=== PATIENT | female | born 1955 | race Caucasian/White ===

== ENCOUNTER 2016-10-21 11:32 | Emergency (ER) | payer OTHER ==
[~2016-10-21] VITALS: Wt 70.0 kg
[2016-10-21] MEDS ORDERED: SOD CHLORIDE 0.9% 1,000 ML IV STA (12:10)
[2016-10-21] MEDS ORDERED: KETOROLAC 15 MG INJ IV STA (12:10)
[2016-10-21] MEDS ORDERED: ONDANSETRON 4 MG INJ IV STA (12:10)
[2016-10-21] MEDS ORDERED: MECL-77 PO (12:18)
[2016-10-21] MEDS ORDERED: ATOR10TA65 PO (12:18)
[2016-10-21] MEDS ORDERED: LOSA50TA6 PO (12:19)
[2016-10-21] MEDS ORDERED: LEVO100T87 PO (12:19)
[2016-10-21] MEDS ORDERED: LORAZEPAM 0.5 MG TAB PO ONE (12:30)
[2016-10-21 13:12] VITALS: TEMP 98
[2016-10-21 13:34] LABS: ADD UMIC YES; URINE BILIRUBIN (Dip) NEGATIVE (NEGATIVE); URINE BLOOD (Dip) 2+ (NEGATIVE); URINE COLOR LT. YELLOW (YELLOW); URINE GLUCOSE (Dip) NEGATIVE (NEGATIVE); URINE KETONES (Dip) NEGATIVE (NEGATIVE); URINE LEUKOCYTE ESTERASE (Dip) NEGATIVE (NEGATIVE); URINE NITRITE (Dip) NEGATIVE (NEGATIVE); URINE TOTAL PROTEIN (Dip) NEGATIVE (NEGATIVE); URINE UROBILINOGEN (Dip) 0.2 E.U./dL (0.1-1.0)
[2016-10-21] MEDS ORDERED: SCOP1PAT TOP (13:58)
[2016-10-21 14:15] VITALS: BP 153/72; PULSE 55; RESP 18
--- NOTE | 2016-10-21 20:04 | ERD ---
ER Documentation Chief Complaint Date/Time DATE: 10/21/16 TIME: 19:58 Chief Complaint dizziness x 2 weeks, seen at [facility] c/o same HPI 61-year-old woman presents with continued dizziness 2 weeks despite using meclizine for a few days without relief. She was seen and evaluated at [facility] recently for similar symptoms and a full workup there including an MRI of the brain was unremarkable. Patient was discharged with prescriptions and told to follow-up with her PMD although her symptoms continue and she has not yet followed up with her PMD. Her son was at the bedside states she has been very anxious regarding family issues recently. Her dizziness is daily with some nausea and a headache, no vomiting or diarrhea, no chest pain or shortness of breath, no suicidal homicidal ideation. Patient denies weakness in her arms or legs and no difficulty ambulating. ROS All systems reviewed and are negative except as per history of present illness. Medications Home Meds Active Scripts Scopolamine (Transderm-Scop) 1 Each Patch.td.3, 1 EACH TOP DAILY, #4 Prov:FAISAL ETIENNE MD 10/21/16 Reported Medications Losartan Potassium* (Losartan Potassium*) 50 Mg Tablet, 50 MG PO DAILY, TAB 10/21/16 Levothyroxine Sodium* (Levothyroxine Sodium*) 100 Mcg Tablet, 100 MCG PO BEFORE BREAKFAST, #30 TAB 10/21/16 Meclizine Hcl* (Meclizine Hcl*) 25 Mg Tablet, 25 MG PO Q8H Y for DIZZINESS, TAB 10/21/16 Atorvastatin Calcium (Atorvastatin Calcium) 10 Mg Tablet, 10 MG PO QHS, #30 TAB 10/21/16 Allergies Allergies: Coded Allergies: No Known Allergy (Unverified , 10/21/16) PMhx/Soc Hypothyroidism, hypertension, obesity, hypercholesterolemia History of Surgery: Yes (THYROID) Hx Cardiac Disorders: Yes (HTN, HYPERLIPIDEMIA) Hx Alcohol Use: No Hx Substance Use: No Hx Tobacco Use: No Smoking Status: Never smoker FmHx Family History: No diabetes Physical Exam Vitals Vital Signs Date Time Temp Pulse Resp B/P Pulse Ox O2 Delivery O2 Flow Rate FiO2 10/21/16 14:15 55 18 153/72 95 Room Air 10/21/16 13:12 98.0 52 18 158/78 95 Room Air 10/21/16 11:37 99.8 79 18 158/72 99 Physical Exam GENERAL: Well-developed, well-nourished, anxious HEENT: Moist mucous membranes, pink conjunctiva, no cervical spine tenderness or step-off deformities, no goiter, no jaundice or icterus, extraocular movements intact without pain. No submandibular induration, and no pharyngeal erythema NEURO: Alert and oriented 3, cranial nerves II through XII intact bilaterally, pupils equal round reactive to light, no focal deficits or facial asymmetry, sensation intact distally Strength 5/5 in upper and lower extremities bilaterally, no nystagmus, no cerebellar signs, gait normal CARDIAC: Regular rate and rhythm, no murmurs rubs or gallops LUNGS: Clear bilaterally no wheezing crackles or stridor ABDOMEN: Soft nontender, no guarding, no rigidity, no rebound, no psoas sign no obturator sign. Normoactive bowel sounds SKIN: Warm and dry to touch, no abrasions, contusions, or hematomas, no lacerations, no ecchymosis, no target lesions, and without ulcers EXTREMITIES: No clubbing cyanosis or edema, calves are bilaterally symmetrical, no Homans sign, no popliteal cord sign. Distal pulses equal and bilateral PSYCH: Anxious Results 24 hrs Laboratory Tests Test 10/21/16 12:53 Urine Color LT. YELLOW Urine Clarity CLEAR Urine pH 6.5 Urine Specific [place] 1.010 Urine Ketones NEGATIVE Urine Nitrite NEGATIVE Urine Bilirubin NEGATIVE Urine Urobilinogen 0.2 E.U./dL Urine Leukocyte Esterase NEGATIVE Urine Microscopic RBC 2-5/HPF Urine Microscopic WBC NONE SEEN/HPF Urine Hemoglobin 2+ Urine Glucose NEGATIVE% Urine Total Protein NEGATIVE Current Medications Medications (Trade) Dose Ordered Sig/Dinorah Route PRN Reason Start Time Stop Time Status Last Admin Dose Admin Sodium Chloride (NS) 1,000 ml @ 1,000 mls/hr Q1H STAT IV 10/21/16 12:10 10/21/16 13:09 DC 10/21/16 13:11 Ketorolac Tromethamine (Toradol) 15 mg ONCE STAT IV 10/21/16 12:10 10/21/16 12:11 DC 10/21/16 13:10 Ondansetron HCl (Zofran Inj) 4 mg ONCE STAT IV 10/21/16 12:10 10/21/16 12:11 DC 10/21/16 13:11 Lorazepam (Ativan) 0.5 mg ONCE ONCE PO 10/21/16 12:30 10/21/16 12:31 DC 10/21/16 13:11 Procedures/MDM IV line was established patient was placed on storage specialist rhythm strip revealed a sinus rhythm at about 80 bpm with upright P and T waves. Patient was afebrile. I administered 1 L normal saline intravenously, lorazepam 0.5 mg p.o., Toradol 50 mg IV and Zofran 4 mg IV with good effect. Urine analysis was negative for infection. I reviewed recent complete workup which was performed at [facility], all labs were normal, EKG was normal , and imaging studies were unremarkable including an MRI of the brain. There are multiple causes of vertigo and generalized dizziness, anxiety being 1 of them, I find no acute or serious underlying pathology today and suspect the patient can be managed safely as an outpatient. Both verbal and written recommendations were provided to the patient and her son who was at the bedside. Differential diagnoses considered, included but not limited to acute coronary syndrome, pulmonary embolism, aortic dissection, abdominal aortic aneurysm, sepsis, stroke, meningitis, encephalitis, pneumonia, appendicitis, cholecystitis , bowel obstruction, pyelonephritis, nephrolithiasis, cystitis, as well as metabolic, hematologic, and electrolyte abnormalities. As well as abscess, cellulitis, fractures, and dislocations. Patient feels much better at this time, and vital signs are normal, symptoms have improved. I did give strict instructions to return to the ED if symptoms continue or worsen, patient will otherwise follow-up with primary care physician. Patient understood instructions and agreed to plan. Departure Diagnosis: Primary Impression: Dizziness Additional Impressions: Dehydration Headache Headache type: unspecified Headache chronicity pattern: acute headache Intractability: not intractable Qualified Code: R51 - Acute nonintractable headache, unspecified headache type Condition: Good Patient Instructions: Inner Ear Problems: Causes of Dizziness (Vertigo), Dizziness (Vertigo) and Balance Problems: Ensuring Your Safety, Dizziness, Unk Cause, Headache, Tension Referrals: MARYCHUY RATLIFF (PCP) FAISAL ETIENNE MD October 21, 2016 20:04
== END 2016-10-21 14:27 | disposition home or self-care (01) ==
LOC: E/R 11:32
DX: R42 Dizziness and giddiness (principal); R51 Headache; E86.0 Dehydration; I10 Essential (primary) hypertension; E03.9 Hypothyroidism, unspecified
CPT/HCPCS: 81001; J1885; J2405; J7030; Z7610; 81003; 96374; 96375

== ENCOUNTER 2016-10-23 19:45 | Emergency (ER) | payer OTHER ==
[~2016-10-23] VITALS: Ht 162.6 cm; Wt 67.0 kg
[~2016-10-23 19:45] MED LIST: ATOR10TA65 PO; LEVO100T87 PO; LOSA50TA6 PO; MECL-77 PO; SCOP1PAT TOP
[2016-10-23 20:04] VITALS: Ht 162.6 cm; Wt 67.0 kg
--- NOTE | 2016-10-23 21:13 | ERA ---
ER Documentation Chief Complaint Date/Time DATE: 10/23/16 TIME: 21:13 Chief Complaint Headache HPI The patient is a 61-year-old female, presenting to the ER because of intermittent headache for 3 weeks, associated with dizziness, vomiting. She was seen at [facility] 8 days ago and had extensive the workup including brain MRI. She was seen in the [facility] ER 2 days ago for similar symptoms. The headache is diffuse and vague. She also complains of bilateral lower extremity weakness intermittently for the last 3 days. The daughter stated she has been intermittently confused since yesterday. However there is a lot of acute stress in her family. She smokes hookah, does not drink Past medical history: Hypertension, hypothyroidism, dyslipidemia Past surgical history: Thyroidectomy ROS All systems reviewed and are negative except as per history of present illness. Medications Home Meds Active Scripts Scopolamine (Transderm-Scop) 1 Each Patch.td.3, 1 EACH TOP DAILY, #4 Prov:FAISAL ETIENNE MD 10/21/16 Reported Medications Losartan Potassium* (Losartan Potassium*) 50 Mg Tablet, 50 MG PO DAILY, TAB 10/21/16 Levothyroxine Sodium* (Levothyroxine Sodium*) 100 Mcg Tablet, 100 MCG PO BEFORE BREAKFAST, #30 TAB 10/21/16 Meclizine Hcl* (Meclizine Hcl*) 25 Mg Tablet, 25 MG PO QAM Y for DIZZINESS, TAB 10/21/16 Atorvastatin Calcium (Atorvastatin Calcium) 10 Mg Tablet, 10 MG PO QHS, #30 TAB 10/21/16 Allergies Allergies: Coded Allergies: No Known Allergy (Unverified , 10/21/16) PMhx/Soc History of Surgery: Yes (THYROID) Hx Cardiac Disorders: Yes (HTN, HYPERLIPIDEMIA) Hx Alcohol Use: No Hx Substance Use: No Hx Tobacco Use: No Physical Exam Vitals Vital Signs Date Time Temp Pulse Resp B/P Pulse Ox O2 Delivery O2 Flow Rate FiO2 10/24/16 01:40 97.6 76 20 111/46 100 Room Air 10/24/16 00:30 57 20 116/59 100 Room Air 10/23/16 23:27 97.6 82 20 131/63 100 Room Air 10/23/16 23:00 98.6 64 16 118/80 100 Room Air 10/23/16 22:33 98.6 64 16 121/75 100 Room Air 10/23/16 20:04 98.8 87 20 122/63 98 Physical Exam Const: No acute distress. Head: Atraumatic. Eyes: Normal Conjunctiva. ENT: Normal External Ears, Nose and Mouth. Neck: Full range of motion. No meningismus. Resp: Clear to auscultation bilaterally. Cardio: Regular rate and rhythm, no murmurs. Abd: Soft, non distended, normal bowel sounds, non tender. Skin: No petechiae or rashes. Back: No midline or flank tenderness. Ext: No cyanosis, or edema. Neur: Awake and alert. No focal deficit Psych: Normal Mood and Affect. Result Diagram: 10/23/16214910/23/162149 Results 24 hrs Laboratory Tests Test 10/23/16 21:50 10/23/16 22:05 White Blood Count 14.710^3/ul Red Blood Count 3.9910^6/ul Hemoglobin 12.6g/dl Hematocrit 36.8% Mean Corpuscular Volume 92.2fl Mean Corpuscular Hemoglobin 31.6pg Mean Corpuscular Hemoglobin Concent 34.2g/dl Red Cell Distribution Width 13.3% Platelet Count 18537^3/UL Mean Platelet Volume 9.9fl Neutrophils % 75.3% Lymphocytes % 16.1% Monocytes % 8.0% Eosinophils % 0.0% Basophils % 0.1% Nucleated Red Blood Cells % 0.0/100WBC Neutrophils # 11.110^3/ul Lymphocytes # 2.410^3/ul Monocytes # 1.210^3/ul Eosinophils # 0.010^3/ul Basophils # 0.010^3/ul Nucleated Red Blood Cells # 0.010^3/ul Prothrombin Time 13.2Sec Prothrombin Time Ratio 1.0 INR International Normalized Ratio 1.00 Activated Partial Thromboplast Time 27.7Sec Sodium Level 140mmol/L Potassium Level 3.2mmol/L Chloride Level 101mmol/L Carbon Dioxide Level 28mmol/L Anion Gap 14 Blood Urea Nitrogen 14mg/dl Creatinine 0.66mg/dl Glucose Level 130mg/dl Calcium Level 9.3mg/dl Troponin I < 0.012ng/ml Thyroid Stimulating Hormone (TSH) 0.636MIU/L Ethyl Alcohol Level < 10.0mg/dl Bedside Urine pH (LAB) 6.0 Bedside Urine Protein (LAB) Negative Bedside Urine Glucose (UA) Negative Bedside Urine Ketones (LAB) Negative Bedside Urine Blood 2+ Bedside Urine Nitrite (LAB) Negative Bedside Urine Leukocyte Esterase (L Trace Current Medications Medications (Trade) Dose Ordered Sig/Dinorah Route PRN Reason Start Time Stop Time Status Last Admin Dose Admin IV Flush 10 ml 10 ml STK-MED ONCE .ROUTE 10/23/16 23:08 10/23/16 23:09 DC 10/23/16 23:20 Sodium Chloride 100 ml @ ud STK-MED ONCE .ROUTE 10/23/16 23:08 10/23/16 23:09 DC 10/23/16 23:20 Iohexol 100 ml @ ud STK-MED ONCE .ROUTE 10/23/16 23:08 10/23/16 23:09 DC 10/23/16 23:20 Potassium Chloride (KCl 40 MEQ/250 ML NS) 250 ml @ 62.5 mls/hr ONCE ONCE IVPB 10/24/16 00:30 10/24/16 02:04 DC 10/24/16 00:42 Nimodipine 60 mg 60 mg ONCE ONCE PO 10/24/16 01:00 10/24/16 01:01 DC 10/24/16 00:43 Sodium Chloride (NS) 500 ml @ 500 mls/hr Q1H ONCE IV 10/24/16 01:30 10/24/16 02:04 DC 10/24/16 01:06 Procedures/[place] [id number] Radiology Main Line: [phone] DIAGNOSTIC IMAGING REPORT Patient: DIAMOND RIVAS : 1955 Age: 61 Sex: F MR #: [id number] DOS: 10/23/162122 Ordering MD: NEDA VELA MD Location: E/R Room/Bed: PROCEDURE: CT brain without contrast CLINICAL INDICATION: Headaches and dizziness TECHNIQUE: A CT of the brain was performed utilizing axial sections from the skull base through the vertex without contrast. Sagittal and coronal images were also reformatted. The exam CTDIvol = 43.48 mGy and DLP = 720.23 mGy-cm. COMPARISON: None available FINDINGS: Hyperdense material within the left sylvian fissure and probably the left suprasellar and ambient cistern as well as the inferior left frontal lobe sulci consistent with acute subarachnoid hemorrhage. The ventriculomegaly with the dilatation of the temporal horns lateral ventricles is consistent with associated hydrocephalus estimated as moderate. There is no evidence of intraparenchymal hemorrhage, midline shift or herniation. No ischemic infarct or mass lesion is demonstrated. The fourth ventricle is midline and there is no density alteration within the maggie or cerebellum. The osseous structures are unremarkable. The mastoid air cells and visualized paranasal sinuses are clear. RPTAT:HJJR IMPRESSION: 1. Acute subarachnoid hemorrhage within the left suprasellar, left ambient cisterns and left sylvian fissure with associated moderate hydrocephalus. Follow -up evaluation is recommended. 2. Critical results are discussed by telephone with Dr. Vela at 22:35. Physician Ashkan Date Time Electronically viewed and signed by Physician Ashkan on 10/23/2016 22:36 JR/ CC: NEDA VELA MD [place] [id number] Radiology Main Line: [phone] DIAGNOSTIC IMAGING REPORT Patient: DIAMOND RIVAS : 1955 Age: 61 Sex: F [id number] DOS: 10/23/16 2257 Ordering MD: NEDA VELA MD Location: E/R Room/Bed: AMENDMENT: 10/24/2016 12:51:18 AM Bruce Fatima Md CRITICAL RESULTS: A call report was made to [facility] ER Dr. Vela on October 24, 2016 at 12:45 a.m. PROCEDURE: CTA HEAD October 23, 2016 at 11:21 p.m. CLINICAL INDICATION: 61-year-old female with subarachnoid hemorrhage. TECHNIQUE: The study was performed utilizing a GE 64-slice multidetector CT scanner. Direct spiral axial sections were obtained through the intracranial vasculature with the use of 100 cc of Omnipaque-350 nonionic intravenous contrast material. Coronal and sagittal as well as maximal intensity projection reformations were obtained. One or more of the following dose reduction techniques were utilized: automated exposure control, adjustment of the mA and/or kV according to patient's size or use of iterative reconstruction technique. The images were reviewed on a PACS workstation. CTD/vol = 111.8 mGy ; Total Exam DLP = 629.6 mGy-cm. COMPARISON: CT brain October 23, 2016 at 10:19 p.m. FINDINGS: There is a left posterior communicating artery aneurysm projecting posteromedially measuring approximately 5 x 5 x 4 mm. There is a narrow neck measuring approximately 2 mm. The rest of the redd[place] of Perez and vertebrobasilar system is without evidence for stenosis or occlusion. There is no evidence for an arteriovenous malformation. The visualized sinuses and dural veins are without abnormality. 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 .Bruce Fatima MD, MD Date Time Electronically viewed and signed by .Bruce Fatima MD, MD on 10/24/2016 00:53 .M/ CC: NEDA VELA MD Consultation: I discussed the patient with the on-call neurosurgeon Dr. Bach at 10:55 PM who requested for a CT angiogram of the brain. The CT scan angiogram has not been read, however Dr. Bach revealed a CT angiogram and spoke with me at 12:30 AM, he diagnosed her with ruptured brain aneurysm and requested her to be transferred for higher level of care and recommended nimodipine Consultation: I discussed the patient with the on-call radiologist Dr. Fatima at 12:50 AM who informed me of the brain aneurysm Consultation: I discussed the patient with the on-call neurologist at [facility] stroke center Dr Allen at 1 AM, who was made aware of the labs, the patient condition, I discussion with the neurosurgeon Dr. Bach. She accepted the transfer MEDICAL MAKING DECISION: The patient is a 61-year-old female, presenting with acute subarachnoid hemorrhage, acute rupture brain aneurysm, acute hypokalemia. She was treated with potassium chloride 40 mEq IV and nimodipine 60 mg p.o. The differential diagnoses considered include but are not limited to subarachnoid hemorrhage, occult trauma, CVA, meningitis, encephalitis, hypertension, tension, migraine, cluster, narcotic withdrawal, cervical spine disease. Critical Care: Time: 35 minutes excluding all billable procedures. Treatments/Evaluations: Close monitoring and treatment of unstable vital signs, cardiorespiratory, and neurologic status, while maintaining tight balance of fluid, respiratory, and cardiac interventions. Departure Diagnosis: Primary Impression: Subarachnoid hemorrhage Additional Impressions: Bleeding in brain due to brain aneurysm Hypokalemia Condition: Critical Comments I discussed the findings with the patient and the daughter. She will be transferred to [facility] stroke center via ambulance NEDA VELA MD October 23, 2016 21:13
[2016-10-23 22:01] LABS: ADD SCAN DIFF NO
[2016-10-23 22:03] LABS: BASOPHILS % 0.1 % (0.0-2.0); HEMATOCRIT 36.8 % (37.0-47.0); HEMOGLOBIN 12.6 g/dl (12.0-16.0); LYMPHOCYTES # 2.4 10^3/ul (0.8-2.9); LYMPHOCYTES % 16.1 % (15.0-51.0); MEAN CORPUSCULAR HEMOGLOBIN 31.6 pg (29.0-33.0); MEAN CORPUSCULAR HGB CONC 34.2 g/dl (32.0-37.0); MEAN CORPUSCULAR VOLUME 92.2 fl (82.0-101.0); MEAN PLATELET VOLUME 9.9 fl (7.4-10.4); MONOCYTE # 1.2 10^3/ul (0.3-0.9); NEUTROPHIL # 11.1 10^3/ul (1.6-7.5); NEUTROPHILS % 75.3 % (39.0-77.0); PLATELET COUNT 344 10^3/UL (140-415); RED BLOOD COUNT 3.99 10^6/ul (4.20-5.40); RED CELL DISTRIBUTION WIDTH 13.3 % (11.5-14.5); WHITE BLOOD COUNT 14.7 10^3/ul (4.8-10.8)
[2016-10-23 22:04] LABS: URINE BLOOD (Dip) POC 2+ (NEGATIVE)
[2016-10-23 22:18] LABS: CHLORIDE 101 mmol/L (97-110); POTASSIUM 3.2 mmol/L (3.5-5.1); SODIUM 140 mmol/L (135-144)
[2016-10-23 22:19] LABS: PARTIAL THROMBOPLASTIN TIME 27.7 Sec (25.0-35.0); PROTIME 13.2 Sec (12.2-14.2)
[2016-10-23 22:21] LABS: ANION GAP 14 (8-16); BLOOD UREA NITROGEN 14 mg/dl (7-20); CARBON DIOXIDE 28 mmol/L (21-31); CREATININE 0.66 mg/dl (0.44-1.00)
[2016-10-23 22:22] LABS: CALCIUM 9.3 mg/dl (8.4-10.2); GLUCOSE 130 mg/dl (70-220)
--- NOTE | 2016-10-23 22:37 | RADRPT ---
PROCEDURE: CT brain without contrast CLINICAL INDICATION: Headaches and dizziness TECHNIQUE: A CT of the brain was performed utilizing axial sections from the skull base through th e vertex without contrast. Sagittal and coronal images were also reformatted. The exam CTDIvol = 43. 48 mGy and DLP = 720.23 mGy-cm. COMPARISON: None available FINDINGS: Hyperdense material within the left sylvian fissure and probably the left suprasellar and ambient ci reynolds as well as the inferior left frontal lobe sulci consistent with acute subarachnoid hemorrhage. The ventriculomegaly with the dilatation of the temporal horns lateral ventricles is consistent wi th associated hydrocephalus estimated as moderate. There is no evidence of intraparenchymal hemorrh age, midline shift or herniation. No ischemic infarct or mass lesion is demonstrated. The fourth v entricle is midline and there is no density alteration within the maggie or cerebellum. The osseous structures are unremarkable. The mastoid air cells and visualized paranasal sinuses are clear. RPTAT:HJJR IMPRESSION: 1. Acute subarachnoid hemorrhage within the left suprasellar, left ambient cisterns and left les n fissure with associated moderate hydrocephalus. Follow-up evaluation is recommended. 2. Critical results are discussed by telephone with Dr. Louise at 22:35. Physician Ashkan Date Time Electronically viewed and signed by Physician Ashkan on 10/23/2016 22:36 /
[2016-10-23 22:41] LABS: ETHANOL < 10.0 mg/dl
[2016-10-23] MEDS ORDERED: SOD CHLORIDE 0.9% 100 ML ONE (23:08)
[2016-10-23] MEDS ORDERED: IOHEXOL 100 ML ONE (23:08)
[2016-10-23 23:28] LABS: THYROID STIMULATING HORMONE 0.636 MIU/L (0.465-4.680)
[2016-10-24] MEDS ORDERED: POTASSIUM CHLORIDE 250 ML IVPB ONE (00:30)
--- NOTE | 2016-10-24 00:52 | RADRPT ---
AMENDMENT: 10/24/2016 12:51:18 AM Bruce Fatima Md CRITICAL RESULTS: A call report was made to [facility] ER Dr. Louise on October 24, 2016 at 12:45 a.m. PROCEDURE: CTA HEAD October 23, 2016 at 11:21 p.m. CLINICAL INDICATION: 61-year-old female with subarachnoid hemorrhage. TECHNIQUE: The study was performed utilizing a GE 64-slice multidetector CT scanner. Direct spiral axial sections were obtained through the intracranial vasculature with the use of 100 cc of Omnipaq ue-350 nonionic intravenous contrast material. Coronal and sagittal as well as maximal intensity pr ojection reformations were obtained. One or more of the following dose reduction techniques were uti lized: automated exposure control, adjustment of the mA and/or kV according to patient's size or use of iterative reconstruction technique. The images were reviewed on a PACS workstation. CTD/vol = 111.8 mGy; Total Exam DLP = 629.6 mGy-cm. COMPARISON: CT brain October 23, 2016 at 10:19 p.m. FINDINGS: There is a left posterior communicating artery aneurysm projecting posteromedially measuring approxi mately 5 x 5 x 4 mm. There is a narrow neck measuring approximately 2 mm. The rest of the [place] and vertebrobasilar system is without evidence for stenosis or occlusion. There is no eviden ce for an arteriovenous malformation. The visualized sinuses and dural veins are without abnormalit y. 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 .Bruce Fatima MD, MD Date Time Electronically viewed and signed by .Bruce Fatima MD, MD on 10/24/2016 00:53 .M/
[2016-10-24] MEDS ORDERED: SOD CHLORIDE 0.9% 500 ML IV ONE (01:30)
[2016-10-24 01:40] VITALS: BP 111/46; PULSE 76; RESP 20; TEMP 97.6
== END 2016-10-24 01:46 | disposition short-term general hospital (02) ==
LOC: E/R 19:45
DX: I60.9 Nontraumatic subarachnoid hemorrhage, unspecified (principal); I67.1 Cerebral aneurysm, nonruptured; E87.6 Hypokalemia; I10 Essential (primary) hypertension; E03.9 Hypothyroidism, unspecified; R40.2142 Coma scale, eyes open, spontaneous, at arrival to emergency department; R40.2252 Coma scale, best verbal response, oriented, at arrival to emergency department; R40.2362 Coma scale, best motor response, obeys commands, at arrival to emergency department
CPT/HCPCS: 36415; 70450; 70496; 80048; 80306; 81003; 84443; 84484; 85025; 85610; 85730; 96374; J3480; J7040; Q9967; Z7502; Z7610

== ENCOUNTER 2016-11-06 20:04 | Inpatient (IN) | payer OTHER ==
[~2016-11-06] VITALS: Ht 152.4 cm; Wt 66.0 kg
[2016-11-06 20:50] VITALS: BP 141/62; PULSE 80; RESP 18
[2016-11-06 21:00] VITALS: Ht 152.4 cm; Wt 66.0 kg
[2016-11-06] MEDS ORDERED: MAGNESIUM HYDROXIDE 30ML CUP PO PRN (21:45)
[2016-11-06] MEDS: DOCUSATE SODIUM 100 MG CAP PO SCH (22:48)
[2016-11-06] MEDS: ATORVASTATIN 10 MG TAB PO SCH (22:48)
[2016-11-06] MEDS: SODIUM CHLORIDE 1 GM TAB PO SCH (22:50)
[2016-11-06] MEDS: HYDROCORTISONE 2.5% 20 GM CR TOP SCH (22:50)
[2016-11-06] MEDS: MIDODRINE 5 MG TAB PO SCH (22:50)
[2016-11-06] MEDS: ZOLPIDEM 5 MG TAB PO PRN (22:54)
[2016-11-06] MEDS ORDERED: LORAZEPAM 0.5 MG TAB PO PRN (23:00)
[2016-11-07 01:05] LABS: ADD UMIC YES; URINE BILIRUBIN (Dip) NEGATIVE (NEGATIVE); URINE BLOOD (Dip) TRACE (NEGATIVE); URINE COLOR LT. YELLOW (YELLOW); URINE GLUCOSE (Dip) NEGATIVE (NEGATIVE); URINE KETONES (Dip) NEGATIVE (NEGATIVE); URINE LEUKOCYTE ESTERASE (Dip) 1+ (NEGATIVE); URINE NITRITE (Dip) NEGATIVE (NEGATIVE); URINE TOTAL PROTEIN (Dip) NEGATIVE (NEGATIVE); URINE UROBILINOGEN (Dip) 0.2 E.U./dL (0.1-1.0)
[2016-11-07 01:20] LABS: BACTERIA,URINE FEW; SQUAMOUS EPITHELIAL CELL,UR FEW; URINE RBCS 0-2 /HPF (0)
[2016-11-07] MEDS ORDERED: BISACODYL 10 MG SUPP PR PRN (05:30)
[2016-11-07] MEDS ORDERED: LACTULOSE 30ML CUP PO PRN (05:30)
[2016-11-07] MEDS: LEVOTHYROXINE 100 MCG TAB PO SCH (06:42)
[2016-11-07 07:30] VITALS: BP 124/58; RESP 18
[2016-11-07 07:45] LABS: ADD SCAN DIFF NO
[2016-11-07 07:55] LABS: BASOPHILS % 0.4 % (0.0-2.0); EOSINOPHILS # 0.6 10^3/ul (0.0-0.5); EOSINOPHILS % 7.9 % (0.0-7.0); HEMATOCRIT 35.2 % (37.0-47.0); HEMOGLOBIN 11.4 g/dl (12.0-16.0); LYMPHOCYTES # 1.7 10^3/ul (0.8-2.9); LYMPHOCYTES % 24.5 % (15.0-51.0); MEAN CORPUSCULAR HEMOGLOBIN 30.6 pg (29.0-33.0); MEAN CORPUSCULAR HGB CONC 32.4 g/dl (32.0-37.0); MEAN CORPUSCULAR VOLUME 94.6 fl (82.0-101.0); MEAN PLATELET VOLUME 11.1 fl (7.4-10.4); MONOCYTE # 0.6 10^3/ul (0.3-0.9); MONOCYTES % 7.9 % (0.0-11.0); NEUTROPHIL # 4.1 10^3/ul (1.6-7.5); NEUTROPHILS % 58.7 % (39.0-77.0); PLATELET COUNT 358 10^3/UL (140-415); RED BLOOD COUNT 3.72 10^6/ul (4.20-5.40); RED CELL DISTRIBUTION WIDTH 14.6 % (11.5-14.5)
[2016-11-07 08:09] VITALS: BP 124/58; PULSE 68; RESP 18
[2016-11-07 08:12] LABS: ALBUMIN/GLOBULIN RATIO 1.16
[2016-11-07 08:13] LABS: ALBUMIN 3.5 g/dl (3.3-4.9); BILIRUBIN,INDIRECT 0.2 mg/dl (0-1.1); BILIRUBIN,TOTAL 0.2 mg/dl (0.2-1.3); CALCIUM 9.5 mg/dl (8.4-10.2); CREATININE 0.6 mg/dl (0.44-1.00); POTASSIUM 4.1 mmol/L (3.5-5.1); TOTAL PROTEIN 6.5 g/dl (6.1-8.1)
[2016-11-07] MEDS: SODIUM CHLORIDE 1 GM TAB PO SCH ×3 (09:10→20:39)
[2016-11-07] MEDS: MIDODRINE 5 MG TAB PO SCH ×2 (09:10→20:39)
[2016-11-07] MEDS: DOCUSATE SODIUM 100 MG CAP PO SCH ×2 (09:11→20:39)
[2016-11-07] MEDS: FLUDROCORTISONE 0.1 MG TAB PO SCH (09:11)
[2016-11-07] MEDS: HYDROCORTISONE 2.5% 20 GM CR TOP SCH ×2 (09:11→20:40)
--- NOTE | 2016-11-07 13:03 | HP ---
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 HISTORY OF PRESENT ILLNESS: This is a 61-year-old right-handed, Turkish- speaking female with past medical history including hypertension, hyperthyroidism, status post thyroidectomy, hyperlipidemia, who presented to outside hospital with severe headaches, nausea, vomiting, syncopal episodes and generalized weakness. Initial CT of her brain as well as a CT angio revealed a subarachnoid hemorrhage and left PCOM aneurysm. She was transferred to [facility] for higher level of care. There she was admitted to ICU and managed by neurosurgery. 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 She had EVD placement and medically managed per neurosurgery. The patient went to the OR on 10/24/2016 for diagnostic cerebral angiogram, coil embolization of the ruptured intracranial aneurysm, as well as intra-arterial verapamil for vasospasm secondary to the subarachnoid hemorrhage by Dr. Lucho Cedeno. The surgery was complicated by a bradycardic episode requiring atropine. Repeat cerebral angiogram done on 10/28/2016 showed mild diffuse vasospasm overall improved from the one on 10/24/2016. Repeat head CT done on 11/04/2016 showed stable hydrocephalus of the shunted ventricles, no new acute intracranial hemorrhage and redemonstration of small infarction in the left subinsular region. Her EVD was removed on 11/04/2016 and she was weaned off vasopressors. The patient did work with physical, occupational and speech therapies and overall noted to have a significant functional decline from her baseline independent status. Currently, the patient is requiring minimal assistance for her bed mobility, transfers and gait 50 feet with a walker, minimal assistance for grooming, maximal assistance for lower body ADLs. The patient was also noted to have significant cognitive and linguistic deficits by speech therapy. Due to her overall significant functional decline and ongoing medical comorbidities, the patient was thought to benefit from acute inpatient rehabilitation. PAST MEDICAL AND PAST SURGICAL HISTORY: As stated in history of present illness. FAMILY HISTORY: Reports noncontributory. 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 The patient lives with her family. Prior to hospitalization, she was completely independent for all functional mobility and self-care ADLs, and did not use any assistive device for ambulation. MEDICATIONS ON ADMISSION: Reviewed in electronic medical records includin. Florinef. 2. Levothyroxine. 3. Tylenol as needed. 4. Dulcolax suppository as needed. 5. Lactulose as needed. 6. Colace. 7. Hydrocortisone cream. 8. Midodrine. 9. Lipitor. 10. Sodium chloride. 11. Milk of magnesia as needed. 12. Melatonin. ALLERGIES: NO KNOWN DRUG ALLERGIES. LABORATORIES AND IMAGING: Reviewed in electronic medical records. Admission labs today show hemoglobin 11.4, hematocrit 35.2, WBC 7, platelets 358. Sodium 139, potassium 4.1, BUN 9, creatinine 0.6. LFTs are normal. REVIEW OF SYSTEMS: CONSTITUTIONAL: Denies fevers or chills. EYES: Denies new visual changes. No pain. EARS, NOSE AND THROAT: Denies difficulty swallowing. No changes in hearing. RESPIRATORY: Denies shortness of breath, no cough. CARDIOVASCULAR: No chest pain, no palpitations. GENITOURINARY: Denies dysuria or any difficulty voiding. GASTROINTESTINAL: Denies abdominal pain, no nausea or vomiting. Daughter reports last bowel movement 2 days ago. NEUROLOGICAL: Denies headache. Daughter reports the patient has had some weakness on the right side since subarachnoid hemorrhage; no new changes. Denies paresthesias. MUSCULOSKELETAL: Denies joint pain. SKIN: Denies itching. PSYCHIATRIC: The patient's mood is noted to be labile and at times during examination became tearful and crying. Review of systems otherwise negative. PHYSICAL EXAMINATION: VITAL SIGNS: Blood pressure is 124/58, heart rate is 68, temperature 98.6 Fahrenheit, respiratory rate 18, O2 saturation 97% on room air. GENERAL: The patient is well-nourished, well-developed, awake, alert, no acute distress. HEENT: Head is normocephalic. Intracranial surgical site clean and dry. No drainage is noted. The patient is not fully cooperating with tracking, but overall appears that her extraocular muscle movements are intact. Mucous membranes moist. NECK: Supple, nontender. RESPIRATORY: Symmetrical air entry bilaterally. No crackles or wheezing. Respirations are nonlabored. CARDIOVASCULAR: Regular rate and rhythm, audible S1, S2. No distal edema. ABDOMEN: Soft, nontender, bowel sounds present, no masses palpated. EXTREMITIES: Calves soft, nontender. No cyanosis, no edema. SKIN: Cranial surgical site clean and dry. She has blanchable redness in the sacrococcyx area and bilateral heels, and bruising in the abdominal region. PSYCHIATRIC: The patient's mood is labile. Patient tearful and crying at times during examination. NEUROLOGICAL/MUSCULOSKELETAL: The patient is oriented to self but was not oriented to place or time, with daughter translating. She follows some simple commands but not consistently and answers some simple questions. Per daughter report appears to have some expressive aphasia, speaking a few words at a time. Daughter reports no dysarthria. There is decreased nasolabial fold on the right with some facial weakness on the right. The patient reports sensation intact to light touch for her face and in the upper and lower extremities. Full cranial nerve testing limited by patient cooperation and ability to follow directions for testing. The patient had difficulty fully cooperating with individualized manual muscle strength testing, but overall appears to have antigravity strength in the bilateral upper and lower extremities, possibly slightly more weakness in the right upper extremity than left upper extremity. Tone testing limited as patient guarding during examination. IMPRESSION: 1. 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 2. Hydrocephalus. 3. Impaired mobility, gait and balance. 4. Impaired self-care activities of daily living. 5. Impaired cognition and aphasia 6. Anemia. 7. History of hypertension. 8. Hyperthyroidism, status post thyroidectomy. 9. Hyperlipidemia. 10. Mood disorder, status post subarachnoid hemorrhage and stroke. PLAN: 1. The patient will be admitted for inpatient comprehensive interdisciplinary rehabilitation to address impairments and medical conditions listed above while assessing equipment needs and compensatory strategies with coordinated interdisciplinary services that will include physical, occupational and speech therapies, and close monitoring and treatment with 24-hour rehabilitation nursing. The patient is anticipated to be able to tolerate 3 hours daily of therapy for at least 5/7 days per week. 2. Begin physical therapy for bed mobility, transfers, balance training, gait training, lower extremity strengthening, range of motion, coordination. 3. Begin occupational therapy for activities of daily living, functional transfers, adaptive equipment evaluation, patient education, upper extremity strengthening, range of motion, coordination. 4. Begin speech therapy for cognitive and linguistic impairments, and full dysphagia evaluation. 5. Rehabilitation nursing to provide the patient education regarding current medications as they relate to medical illness. Monitor pain. Monitor bowel and bladder programs and administer such programs and reinforce those activities with therapies. 6. Dr. Mercado and associates to follow for management of comorbidities. 7. For anemia, continue to monitor hemoglobin and hematocrit. 8. Continue to monitor the patient closely for any new neurological changes. Continue medical management per neurosurgery recommendations. 9. For hypothyroidism, continue on levothyroxine. 10. For mood disorder, will have psychology follow. 11. For deep venous thrombosis prophylaxis, continue on SCDs. Will defer to neurosurgery and internal medicine in regards to appropriate timing of chemoprophylaxis. REHABILITATION GOALS: Improve bed mobility, transfers, gait and self-care ADLs to at least standby assistance level ESTIMATED LENGTH OF STAY: Approximately 14 days. Her case will be discussed at the weekly interdisciplinary conference. Anticipated disposition is to home with family support. PROGNOSIS: At the current time, this inpatient hospital rehabilitation stay is medically necessary to achieve important health and functional goals. The patient requires frequent physician visits, 24-hour rehabilitation nursing and a coordinated intensive rehabilitation program as described above to address complex medical, nursing and rehabilitation needs. The patient has a fair prognosis for benefitting from this program and returning to home and community. REHABILITATION PHYSICIAN POST-ADMISSION ASSESSMENT REVIEW: I have had the opportunity to examine the patient within 24 hours of admission and have reviewed the preadmission assessment and find it consistent with my examination and evaluation of the patient. I confirm that this patient is appropriate for admission and treatment in this inpatient rehabilitation hospital, needs intense interdisciplinary rehabilitation care and is expected to achieve meaningful goals within a reasonable period of time that are consistent with the planned discharge disposition as noted above. Dictated By: TAN JEFF MD, RA/YESSICA Conf#: [id number] DID#: [id number] ALIDA
--- NOTE | 2016-11-07 16:32 | CONS ---
DATE OF ADMISSION: 11/06/2016 DATE OF CONSULTATION: 11/07/2016 CONSULTATION TYPE: Pulmonary and internal medicine. HISTORY OF PRESENT ILLNESS: This is a 61-year-old [id number] female with a history of hyp ertension, hypothyroidism, status post thyroidectomy, hyperlipidemia who presented initially to [facility], was found to have an acute subarachnoid hemorrhage due to left PCOM aneurysm. She was subsequently transferred to [facility] for higher level of care, at which point she was noted to have cerebral edema and evidence of obstructive hydrocephalus. She underwent EVD plac ement and coil embolization for her ruptured intracranial aneurysm. Her course was complicated by v asospasm requiring intra-arterial verapamil. She also underwent repeat cerebral angiography which s howed evidence of ongoing vasospasm. She had an EVD actually placed on November 04 for her obstructive h ydrocephalus. During her course, she was followed by numerous specialties, including neurosurgery, neurology and pulmonary critical care. Her EVD was subsequently discontinued and her management of subarachnoid hemorrhage no longer required intensive care. Currently, the patient is requiring some assistance for mobility, and has been transferred here for her ongoing rehabilitation needs. PAST MEDICAL HISTORY: As noted, hypertension, hypothyroidism. PAST SURGICAL HISTORY: Status post thyroidectomy, hyperlipidemia, recent subarachnoid hemorrhage. MEDICATIONS: Please see MAR. SOCIAL HISTORY: Former tobacco; no alcohol or illicit drug use. ALLERGIES: NONE. FAMILY HISTORY: Noncontributory. REVIEW OF SYSTEMS: As noted in the HPI. PHYSICAL EXAMINATION: VITAL SIGNS: Stable. Blood pressure is 124/58, oxygen saturation is 97% on room air, heart rate is 68. HEENT: Normocephalic, atraumatic. NECK: Supple, no thyromegaly, no jugular venous distention. CARDIOVASCULAR: Regular rate and rhythm, S1, S2. No murmurs, rubs, or gallops. LUNGS: Clear to auscultation bilaterally. ABDOMEN: Soft, nontender, no hepatosplenomegaly. EXTREMITIES: No cyanosis, clubbing or edema. LABORATORY DATA: WBC is 7, hemoglobin 11.4. Chemistries within normal limits. UA shows 10 to 25 W BCs. IMPRESSION: 1. Status post subarachnoid hemorrhage due to cerebral artery aneurysm, status post coiling complic ated by vasospasm and hydrocephalus requiring external ventricular drain. 2. Some residual neurological deficits. 3. Hypertension. 4. Hypothyroidism. 5. Anemia. 6. Hyperlipidemia. 7. Hypertensive heart disease. RECOMMENDATIONS: 1. Continuation of rehabilitation with physical therapy, occupational therapy and speech therapy. 2. Close management of blood pressure, in view of her recent intracranial hemorrhage. 3. Continuation of her medications including antihypertensive therapy as well as her thyroid replac ement. 4. Deep venous thrombosis and GI prophylaxis. Dictated By: FRANCIA WARD MD NK/NTS Conf#: [id number] DID#: [id number] CC: ALEC HENRY MD;*EndCC*
[2016-11-07] MEDS: ATORVASTATIN 10 MG TAB PO SCH (20:39)
[2016-11-07] MEDS: SENNA TAB PO SCH (20:40)
[2016-11-07 21:40] VITALS: BP 140/63; PULSE 70; RESP 19
[2016-11-08] MEDS: LEVOTHYROXINE 100 MCG TAB PO SCH (06:30)
[2016-11-08 08:00] VITALS: BP 129/67; PULSE 76; RESP 18
[2016-11-08] MEDS: FLUDROCORTISONE 0.1 MG TAB PO SCH (08:36)
[2016-11-08] MEDS: DOCUSATE SODIUM 100 MG CAP PO SCH ×2 (08:36→20:42)
[2016-11-08] MEDS: SODIUM CHLORIDE 1 GM TAB PO SCH ×3 (08:36→20:42)
[2016-11-08] MEDS: HYDROCORTISONE 2.5% 20 GM CR TOP SCH ×2 (08:37→20:44)
[2016-11-08] MEDS: MIDODRINE 5 MG TAB PO SCH ×2 (08:37→20:45)
--- NOTE | 2016-11-08 10:44 | PN ---
Date/Time of Note Date/Time of Note DATE: 11/08/16 TIME: 10:35 Assessment/Plan VTE Prophylaxis VTE Prophylaxis Intervention: SCD's Lines/Catheters Urinary Cath still in place: No Assessment/Plan Assessment/Plan 1. 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 Continue medical management. Continue PT/OT/ST. Mod assist for bed mobility and transfers. Status post fall overnight. 1:1 sitter at night. Bed/Wheelchair alarm. Continue medical management per neurosurgery and neurology. Monitor for any neurological changes. 2. Anemia. Monitor hemoglobin/hematocrit. 3. History of hypertension. Monitor BP. Managed per internal medicine. 4. Hyperthyroidism, status post thyroidectomy. On levothyroxine supplementation. 5. Hyperlipidemia. On statin. Subjective 24 Hr Interval Summary Free Text/Dictation Rehab progress note Subjective/History: Nursing reports patient had a fall overnight. Per nursing report, her had left the room and patient got up on her own from the bed and slid to floor on her bottom. No head trauma reported or any other injuries identified. [employer] used for the encounter. Patient denies any current complaints. No pain reported. ROS: Denies headache, no dizziness, no chest pain, no shortness of breath, no abdominal pain, no nausea, no vomiting, no chills. Exam/Review of Systems Vital Signs Vitals Vital Signs Date Time Temp Pulse Resp B/P Pulse Ox O2 Delivery O2 Flow Rate FiO2 11/07/16 21:40 97.3 70 19 140/63 96 Room Air Intake and Output 11/07/16 11/07/16 11/08/16 15:00 23:00 07:00 Intake Total 320 ml Output Total 3 ml Balance -3 ml 320 ml Exam General: Awake, alert, no acute distress, oriented to self, hospital when given choices, but reports year 2012 CV: Regular rate, s1s2 Lungs: Symmetrical air entry bilaterally, no wheezing Abdomen soft, nontender, +bowel sounds Extremities without cyanosis, no new swelling Neuro: No new focal changes. Moves all extremities with antigravity strength. Results Result Diagram: 5/27/17 0602 5/27/17 0602 Medications Medications Current Medications Docusate Sodium (Colace) 100 mg BID PO Last administered on 11/08/16 08:36; Admin Dose 100 MG; Start 11/06/16 at 22:00 Fludrocortisone Acetate (Florinef) 0.1 mg DAILY PO Last administered on 08:36; Admin Dose 0.1 MG; Start 11/07/16 at 09:00 Levothyroxine Sodium (Synthroid) 100 mcg DAILY@06 PO Last administered on 06:30; Admin Dose 100 MCG; Start 11/07/16 at 06:00 Hydrocortisone (Hydrocortisone 2.5% Cr) 1 applic BID TOP Last administered on 08:37; Admin Dose 1 APPLIC; Start 11/06/16 at 22:00 Midodrine (Proamatine) 10 mg BID PO Last administered on 11/08/16 08:37; Admin Dose 10 MG; Start 11/06/16 at 22:00 Atorvastatin Calcium (Lipitor) 10 mg DAILY@21 PO Last administered on 20:39; Admin Dose 10 MG; Start 11/06/16 at 22:00 Sodium Chloride (Nacl) 1 gm TID PO Last administered on 11/08/16 08:36; Admin Dose 1 GM; Start 11/06/16 at 22:00 Magnesium Hydroxide (Milk Of Mag) 30 ml Q6H PRN PO CONSTIPATION; Start at 21:45 Zolpidem Tartrate (Ambien) 5 mg HS PRN PO INSOMNIA Last administered on 22:54; Admin Dose 5 MG; Start 11/06/16 at 23:00 Senna (Senokot) 1 tab HS PO Last administered on 11/07/16 20:40; Admin Dose 1 TAB; Start 11/07/16 at 21:00 Acetaminophen (Tylenol Tab) 650 mg Q4H PRN PO PAIN; Start 11/07/16 at 05:30 Bisacodyl (Dulcolax Supp) 10 mg DAILY PRN [place] CONSTIPATION; Start 11/07/16 at 05 :30 Lactulose (Enulose) 20 gm DAILY PRN PO CONSTIPATION; Start 11/07/16 at 05:30 TAN JEFF November 08, 2016 10:44
--- NOTE | 2016-11-08 14:08 | CONS ---
Date/Time of Note Date/Time of Note DATE: 11/08/16 TIME: 14:07 Consult Date/Type/Reason Admit Date/Time November 06, 2016 at 20:04 Initial Consult Date Type of Consultation: IM/Pulm Subjective No events. UrCx results noted. Objective Vital Signs Date Time Temp Pulse Resp B/P Pulse Ox O2 Delivery O2 Flow Rate FiO2 11/08/16 08:00 98.3 76 18 129/67 95 Room Air Intake and Output 11/07/16 11/07/16 11/08/16 15:00 23:00 07:00 Intake Total 320 ml Output Total 3 ml Balance -3 ml 320 ml Exam HEENT: Normocephalic, atraumatic. NECK: Supple, no thyromegaly, no jugular venous distention. CARDIOVASCULAR: Regular rate and rhythm, S1, S2. No murmurs, rubs, or gallops. LUNGS: Clear to auscultation bilaterally. ABDOMEN: Soft, nontender, no hepatosplenomegaly. EXTREMITIES: No cyanosis, clubbing or edema. Results/Medications Result Diagram: 11/07/1602 11/07/16 0602 Medications Current Medications Docusate Sodium (Colace) 100 mg BID PO Last administered on 11/08/16 08:36; Admin Dose 100 MG; Start 11/06/16 at 22:00 Fludrocortisone Acetate (Florinef) 0.1 mg DAILY PO Last administered on 08:36; Admin Dose 0.1 MG; Start 11/07/16 at 09:00 Levothyroxine Sodium (Synthroid) 100 mcg DAILY@06 PO Last administered on 06:30; Admin Dose 100 MCG; Start 11/07/16 at 06:00 Hydrocortisone (Hydrocortisone 2.5% Cr) 1 applic BID TOP Last administered on 08:37; Admin Dose 1 APPLIC; Start 11/06/16 at 22:00 Midodrine (Proamatine) 10 mg BID PO Last administered on 11/08/16 08:37; Admin Dose 10 MG; Start 11/06/16 at 22:00 Atorvastatin Calcium (Lipitor) 10 mg DAILY@21 PO Last administered on 20:39; Admin Dose 10 MG; Start 11/06/16 at 22:00 Sodium Chloride (Nacl) 1 gm TID PO Last administered on 11/08/16 12:05; Admin Dose 1 GM; Start 11/06/16 at 22:00 Magnesium Hydroxide (Milk Of Mag) 30 ml Q6H PRN PO CONSTIPATION Last administered on 11/08/16 12:05; Admin Dose 30 ML; Start 11/06/16 at 21:45 Zolpidem Tartrate (Ambien) 5 mg HS PRN PO INSOMNIA Last administered on 22:54; Admin Dose 5 MG; Start 11/06/16 at 23:00 Senna (Senokot) 1 tab HS PO Last administered on 11/07/16 20:40; Admin Dose 1 TAB; Start 11/07/16 at 21:00 Acetaminophen (Tylenol Tab) 650 mg Q4H PRN PO PAIN; Start 11/07/16 at 05:30 Bisacodyl (Dulcolax Supp) 10 mg DAILY PRN [place] CONSTIPATION; Start 11/07/16 at 05 :30 Lactulose (Enulose) 20 gm DAILY PRN PO CONSTIPATION; Start 11/07/16 at 05:30 Assessment/Plan Additional Assessment/Plan IMPRESSION: 1. Status post subarachnoid hemorrhage due to cerebral artery aneurysm, status post coiling complicated by vasospasm and hydrocephalus requiring external ventricular drain. 2. UTI 3. Hypertension. 4. Hypothyroidism. 5. Anemia. 6. Hyperlipidemia. 7. Hypertensive heart disease. RECOMMENDATIONS: 1. Continuation of rehabilitation with physical therapy, occupational therapy and speech therapy. 2. Close management of blood pressure, in view of her recent intracranial hemorrhage. 3. Cipro PO for UTI FRANCIA WARD MD November 08, 2016 14:08
[2016-11-08] MEDS: CIPROFLOXACIN 500 MG TAB PO SCH (17:26)
[2016-11-08 20:27] VITALS: BP 142/67; RESP 18
[2016-11-08] MEDS: ATORVASTATIN 10 MG TAB PO SCH (20:42)
[2016-11-08] MEDS: SENNA TAB PO SCH (20:43)
[2016-11-09] MEDS: CIPROFLOXACIN 500 MG TAB PO SCH ×2 (06:17→19:23)
[2016-11-09] MEDS: LEVOTHYROXINE 100 MCG TAB PO SCH (06:17)
[2016-11-09 07:30] VITALS: BP 128/58; RESP 18
[2016-11-09] MEDS: DOCUSATE SODIUM 100 MG CAP PO SCH ×2 (09:00→20:35)
--- NOTE | 2016-11-09 10:25 | PN ---
Date/Time of Note Date/Time of Note DATE: 11/09/16 TIME: 10:21 Assessment/Plan VTE Prophylaxis VTE Prophylaxis Intervention: SCD's Lines/Catheters Urinary Cath still in place: No Assessment/Plan Assessment/Plan 1. 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 Continue PT/OT/ST. Mod assist for gait 20ft with FWW. Continue medical management. Continue 1:1 sitter at night. Bed/Wheelchair alarm. 2. Anemia. Monitor hemoglobin/hematocrit. 3. History of hypertension. Monitor BP. Managed per internal medicine. 4. Hyperthyroidism, status post thyroidectomy. On levothyroxine supplementation. 5. Hyperlipidemia. 6. UTI, present on admission. On antibiotics. 7. Abdominal pain. Check abdominal XR. Subjective 24 Hr Interval Summary Free Text/Dictation Rehab progress note Subjective: Daughter at bedside. Reports patient slept well overnight. Patient reports some abdominal cramping since last night, had bowel movement yesterday and this morning. No nausea, no vomiting. Denies dysuria or difficulty with urination. ROS: No headache, no dizziness, no shortness of breath, no chest pain, no chills. Exam/Review of Systems Vital Signs Vitals Vital Signs Date Time Temp Pulse Resp B/P Pulse Ox O2 Delivery O2 Flow Rate FiO2 11/08/16 20:27 98.3 81 18 142/67 97 11/08/16 08:00 Room Air Intake and Output 11/08/16 11/08/16 11/09/16 15:00 23:00 07:00 Intake Total 660 ml Balance 660 ml Exam General: Awake, alert, no acute distress, oriented to self, hospital when given choices, but reports year 2012 CV: Regular rate, s1s2 Lungs: Symmetrical air entry bilaterally, no wheezing Abdomen soft, nontender, no rebound or guarding, +bowel sounds Extremities without cyanosis, no new swelling Neuro: No new focal changes. Follows some simple commands. Results Result Diagram: 11/07/16 0602 11/07/16 06 Medications Medications Current Medications Docusate Sodium (Colace) 100 mg BID PO Last administered on 11/08/16t 20:42; Admin Dose 100 MG; Start 11/06/16 at 22:00 Fludrocortisone Acetate (Florinef) 0.1 mg DAILY PO Last administered on 08:36; Admin Dose 0.1 MG; Start 11/07/16 at 09:00 Levothyroxine Sodium (Synthroid) 100 mcg DAILY@06 PO Last administered on 06:17; Admin Dose 100 MCG; Start 11/07/16 at 06:00 Hydrocortisone (Hydrocortisone 2.5% Cr) 1 applic BID TOP Last administered on 20:44; Admin Dose 1 APPLIC; Start 11/06/16 at 22:00 Midodrine (Proamatine) 10 mg BID PO Last administered on 11/08/16 08:37; Admin Dose 10 MG; Start 11/06/16 at 22:00 Atorvastatin Calcium (Lipitor) 10 mg DAILY@21 PO Last administered on 20:42; Admin Dose 10 MG; Start 11/06/16 at 22:00 Sodium Chloride (Nacl) 1 gm TID PO Last administered on 11/08/16 20:42; Admin Dose 1 GM; Start 11/06/16 at 22:00 Magnesium Hydroxide (Milk Of Mag) 30 ml Q6H PRN PO CONSTIPATION Last administered on 11/08/16 12:05; Admin Dose 30 ML; Start 11/06/16 at 21:45 Zolpidem Tartrate (Ambien) 5 mg HS PRN PO INSOMNIA Last administered on 22:54; Admin Dose 5 MG; Start 11/06/16 at 23:00 Senna (Senokot) 1 tab HS PO Last administered on 11/08/16 20:43; Admin Dose 1 TAB; Start 11/07/16 at 21:00 Acetaminophen (Tylenol Tab) 650 mg Q4H PRN PO PAIN; Start 11/07/16 at 05:30 Bisacodyl (Dulcolax Supp) 10 mg DAILY PRN [place] CONSTIPATION; Start 11/07/16 at 05 :30 Lactulose (Enulose) 20 gm DAILY PRN PO CONSTIPATION; Start 11/07/16 at 05:30 Ciprofloxacin (Cipro) 500 mg BID@,18 PO Last administered on 11/09/16 06:17 ; Admin Dose 500 MG; Start 11/08/16 at 18:00 TAN JEFF November 09, 2016 10:25
[2016-11-09] MEDS: SODIUM CHLORIDE 1 GM TAB PO SCH ×3 (10:49→20:35)
[2016-11-09] MEDS: FLUDROCORTISONE 0.1 MG TAB PO SCH (10:50)
[2016-11-09] MEDS: MIDODRINE 5 MG TAB PO SCH ×2 (10:55→20:36)
[2016-11-09] MEDS: HYDROCORTISONE 2.5% 20 GM CR TOP SCH ×2 (10:55→20:40)
--- NOTE | 2016-11-09 10:57 | RADRPT ---
PROCEDURE: XR Abdomen. CLINICAL INDICATION: Abdominal pain and cramping. TECHNIQUE: AP abdomen x-ray. COMPARISON: None. FINDINGS: The bowel gas pattern is normal. There is no evidence of obstruction. There are no abnormal calcific ations overlying the urinary tracts. The osseous structures are unremarkable. IMPRESSION: Unremarkable abdomen radiograph. RPTAT: HJPL .Carter Umanzor MD, MD Date Time Electronically viewed and signed by .Carter Umanzor MD, MD on 11/09/2016 10:57 .L/
--- NOTE | 2016-11-09 12:40 | CONS ---
Date/Time of Note Date/Time of Note DATE: 11/09/16 TIME: 12:39 Consult Date/Type/Reason Admit Date/Time November 06, 2016 at 20:04 Type of Consultation: IM/Pulm Subjective Abdominal pain noted overnight. KUB negative. On abx for UTI Objective Vital Signs Date Time Temp Pulse Resp B/P Pulse Ox O2 Delivery O2 Flow Rate FiO2 11/09/16 07:30 98.8 82 18 128/58 98 11/08/16 08:00 Room Air Intake and Output 11/08/16 11/08/16 11/09/16 14:59 22:59 06:59 Intake Total 660 ml Balance 660 ml Exam HEENT: Normocephalic, atraumatic. NECK: Supple, no thyromegaly, no jugular venous distention. CARDIOVASCULAR: Regular rate and rhythm, S1, S2. No murmurs, rubs, or gallops. LUNGS: Clear to auscultation bilaterally. ABDOMEN: Soft, nontender, no hepatosplenomegaly. EXTREMITIES: No cyanosis, clubbing or edema. Results/Medications Result Diagram: 11/07/1660111/07/16601 Medications Current Medications Docusate Sodium (Colace) 100 mg BID PO Last administered on 11/08/16 20:42; Admin Dose 100 MG; Start 11/06/16 at 22:00 Fludrocortisone Acetate (Florinef) 0.1 mg DAILY PO Last administered on 10:50; Admin Dose 0.1 MG; Start 11/07/16 at 09:00 Levothyroxine Sodium (Synthroid) 100 mcg DAILY@06 PO Last administered on 06:17; Admin Dose 100 MCG; Start 11/07/16 at 06:00 Hydrocortisone (Hydrocortisone 2.5% Cr) 1 applic BID TOP Last administered on 10:55; Admin Dose 1 APPLIC; Start 11/06/16 at 22:00 Midodrine (Proamatine) 10 mg BID PO Last administered on 11/09/16 10:55; Admin Dose 10 MG; Start 11/06/16 at 22:00 Atorvastatin Calcium (Lipitor) 10 mg DAILY@21 PO Last administered on 20:42; Admin Dose 10 MG; Start 11/06/16 at 22:00 Sodium Chloride (Nacl) 1 gm TID PO Last administered on 11/09/16 10:49; Admin Dose 1 GM; Start 11/06/16 at 22:00 Magnesium Hydroxide (Milk Of Mag) 30 ml Q6H PRN PO CONSTIPATION Last administered on 11/08/16 12:05; Admin Dose 30 ML; Start 11/06/16 at 21:45 Zolpidem Tartrate (Ambien) 5 mg HS PRN PO INSOMNIA Last administered on 22:54; Admin Dose 5 MG; Start 11/06/16 at 23:00 Senna (Senokot) 1 tab HS PO Last administered on 11/08/16 20:43; Admin Dose 1 TAB; Start 11/07/16 at 21:00; Status Future Hold Acetaminophen (Tylenol Tab) 650 mg Q4H PRN PO PAIN; Start 11/07/16 at 05:30 Bisacodyl (Dulcolax Supp) 10 mg DAILY PRN [place] CONSTIPATION; Start 11/07/16 at 05 :30 Lactulose (Enulose) 20 gm DAILY PRN PO CONSTIPATION; Start 11/07/16 at 05:30 Ciprofloxacin (Cipro) 500 mg BID@06,18 PO Last administered on 11/09/16 06:17 ; Admin Dose 500 MG; Start 11/08/16 at 18:00 Assessment/Plan Additional Assessment/Plan IMPRESSION: 1. Status post subarachnoid hemorrhage due to cerebral artery aneurysm, status post coiling complicated by vasospasm and hydrocephalus requiring external ventricular drain. 2. UTI 3. Hypertension. 4. Hypothyroidism. 5. Anemia. 6. Hyperlipidemia. 7. Hypertensive heart disease. RECOMMENDATIONS: 1. PT/OT 2. Close management of blood pressure 3. Continue Cipro 4. Obtain labs-> CBC, CMP FRANCIA WARD MD November 09, 2016 12:40
[2016-11-09 19:44] VITALS: BP 139/69; RESP 18
[2016-11-09] MEDS: ATORVASTATIN 10 MG TAB PO SCH (20:35)
[2016-11-09] MEDS: ZOLPIDEM 5 MG TAB PO PRN (21:43)
[2016-11-10] MEDS: LEVOTHYROXINE 100 MCG TAB PO SCH (06:31)
[2016-11-10] MEDS: CIPROFLOXACIN 500 MG TAB PO SCH ×2 (06:31→17:47)
[2016-11-10 07:11] LABS: ADD SCAN DIFF NO
[2016-11-10 07:15] LABS: BASOPHILS % 0.3 % (0.0-2.0); EOSINOPHILS # 0.3 10^3/ul (0.0-0.5); EOSINOPHILS % 4.6 % (0.0-7.0); HEMOGLOBIN 12.4 g/dl (12.0-16.0); LYMPHOCYTES # 2.1 10^3/ul (0.8-2.9); LYMPHOCYTES % 28.9 % (15.0-51.0); MEAN CORPUSCULAR HGB CONC 32.6 g/dl (32.0-37.0); MEAN PLATELET VOLUME 10.9 fl (7.4-10.4); MONOCYTE # 0.6 10^3/ul (0.3-0.9); MONOCYTES % 8.4 % (0.0-11.0); NEUTROPHIL # 4.2 10^3/ul (1.6-7.5); NEUTROPHILS % 57.1 % (39.0-77.0); PLATELET COUNT 353 10^3/UL (140-415); RED CELL DISTRIBUTION WIDTH 14.6 % (11.5-14.5); WHITE BLOOD COUNT 7.4 10^3/ul (4.8-10.8)
[2016-11-10 07:32] VITALS: BP 122/58; PULSE 73; RESP 20
[2016-11-10 07:40] LABS: ALBUMIN 3.8 g/dl (3.3-4.9); ALBUMIN/GLOBULIN RATIO 1.18; BILIRUBIN,INDIRECT 0.3 mg/dl (0-1.1); BILIRUBIN,TOTAL 0.3 mg/dl (0.2-1.3); CALCIUM 9.7 mg/dl (8.4-10.2); CREATININE 0.62 mg/dl (0.44-1.00)
[2016-11-10] MEDS: DOCUSATE SODIUM 100 MG CAP PO SCH ×2 (09:14→20:54)
[2016-11-10] MEDS: SODIUM CHLORIDE 1 GM TAB PO SCH ×3 (09:15→20:57)
[2016-11-10] MEDS: FLUDROCORTISONE 0.1 MG TAB PO SCH (09:15)
[2016-11-10] MEDS: MIDODRINE 5 MG TAB PO SCH ×2 (09:15→20:57)
[2016-11-10] MEDS: HYDROCORTISONE 2.5% 20 GM CR TOP SCH ×2 (09:18→20:57)
--- NOTE | 2016-11-10 12:37 | CONS ---
Date/Time of Note Date/Time of Note DATE: 11/10/16 TIME: 12:36 Consult Date/Type/Reason Admit Date/Time November 06, 2016 at 20:04 Initial Consult Date Type of Consultation: IM/Pulm Subjective Comfortable Objective Vital Signs Date Time Temp Pulse Resp B/P Pulse Ox O2 Delivery O2 Flow Rate FiO2 11/10/16 07:32 98.8 73 20 122/58 97 Room Air Intake and Output 11/09/16 11/09/16 11/10/16 14:59 22:59 06:59 Intake Total 620 ml 750 ml Output Total 1 ml Balance 619 ml 750 ml INTERDISCIPLINARY TEAM CONFERENCE BOWEL- Cont BLADDER-Cont SKIN- intact OT- DRESSING-mod BATHING-mod TOILETING-mod PT- BED MOBILITY-mod TRANSFERS-mod AMBULATION-mod 20 feet SPEECH- COGNITION-min DYPHAGIA A/P- Interdisciplinary team conference held today. Please see interdisciplinary sheet. Working toward d.cIleana on 11/19 with post discharge follow up of physical therapy, occupational therapy. Results/Medications Result Diagram: 11/10/1631 11/10/16 0631 Results 24 hrs Laboratory Tests Test 11/10/16 06:31 White Blood Count 7.4 Red Blood Count 4.00 L Hemoglobin 12.4 Hematocrit 38.0 Mean Corpuscular Volume 95.0 Mean Corpuscular Hemoglobin 31.0 Mean Corpuscular Hemoglobin Concent 32.6 Red Cell Distribution Width 14.6 H Platelet Count 353 Mean Platelet Volume 10.9 H Neutrophils % 57.1 Lymphocytes % 28.9 Monocytes % 8.4 Eosinophils % 4.6 Basophils % 0.3 Nucleated Red Blood Cells % 0.0 Neutrophils # 4.2 Lymphocytes # 2.1 Monocytes # 0.6 Eosinophils # 0.3 Basophils # 0.0 Nucleated Red Blood Cells # 0.0 Sodium Level 140 Potassium Level 4.0 Chloride Level 106 Carbon Dioxide Level 26 Anion Gap 12 Blood Urea Nitrogen 17 Creatinine 0.62 Glucose Level 89 Calcium Level 9.7 Total Bilirubin 0.3 Direct Bilirubin 0.00 Indirect Bilirubin 0.3 Aspartate Amino Transf (AST/SGOT) 26 Alanine Aminotransferase (ALT/SGPT) 49 Alkaline Phosphatase 47 Total Protein 7.0 Albumin 3.8 Globulin 3.20 Albumin/Globulin Ratio 1.18 Amylase Level 67 Medications Current Medications Docusate Sodium (Colace) 100 mg BID PO Last administered on 11/10/16 09:14; Admin Dose 100 MG; Start 11/06/16 at 22:00 Fludrocortisone Acetate (Florinef) 0.1 mg DAILY PO Last administered on 09:15; Admin Dose 0.1 MG; Start 11/07/16 at 09:00 Levothyroxine Sodium (Synthroid) 100 mcg DAILY@06 PO Last administered on 06:31; Admin Dose 100 MCG; Start 11/07/16 at 06:00 Hydrocortisone (Hydrocortisone 2.5% Cr) 1 applic BID TOP Last administered on 09:18; Admin Dose 1 APPLIC; Start 11/06/16 at 22:00 Midodrine (Proamatine) 10 mg BID PO Last administered on 11/10/16 09:15; Admin Dose 10 MG; Start 11/06/16 at 22:00 Atorvastatin Calcium (Lipitor) 10 mg DAILY@21 PO Last administered on 20:35; Admin Dose 10 MG; Start 11/06/16 at 22:00 Sodium Chloride (Nacl) 1 gm TID PO Last administered on 11/10/16 09:15; Admin Dose 1 GM; Start 11/06/16 at 22:00 Magnesium Hydroxide (Milk Of Mag) 30 ml Q6H PRN PO CONSTIPATION Last administered on 11/08/16 12:05; Admin Dose 30 ML; Start 11/06/16 at 21:45 Zolpidem Tartrate (Ambien) 5 mg HS PRN PO INSOMNIA Last administered on 21:43; Admin Dose 5 MG; Start 11/06/16 at 23:00 Senna (Senokot) 1 tab HS PO Last administered on 11/08/16 20:43; Admin Dose 1 TAB; Start 11/07/16 at 21:00; Status Future Hold Acetaminophen (Tylenol Tab) 650 mg Q4H PRN PO PAIN; Start 11/07/16 at 05:30 Bisacodyl (Dulcolax Supp) 10 mg DAILY PRN [place] CONSTIPATION; Start 11/07/16 at 05 :30 Lactulose (Enulose) 20 gm DAILY PRN PO CONSTIPATION; Start 11/07/16 at 05:30 Ciprofloxacin (Cipro) 500 mg BID@,18 PO Last administered on 5/30/17at 06:31 ; Admin Dose 500 MG; Start 11/08/16 at 18:00 COURTNEY RUIZ MD November 10, 2016 12:37
--- NOTE | 2016-11-10 14:40 | CONS ---
Date/Time of Note Date/Time of Note DATE: 11/10/16 TIME: 14:39 Consult Date/Type/Reason Admit Date/Time November 06, 2016 at 20:04 Initial Consult Date Type of Consultation: IM/Pulm Subjective patient comfortable no new events sitting up at rest family at bedside patient comfortable at rest no new events sitting up in chair with family at bedside Objective Vital Signs Date Time Temp Pulse Resp B/P Pulse Ox O2 Delivery O2 Flow Rate FiO2 11/10/16 07:32 98.8 73 20 122/58 97 Room Air Intake and Output 11/09/16 11/09/16 11/10/16 15:00 23:00 07:00 Intake Total 620 ml 750 ml Output Total 1 ml Balance 619 ml 750 ml Results/Medications Result Diagram: 11/10/1663011/10/16630 Results 24 hrs Laboratory Tests Test 11/10/16 06:31 White Blood Count 7.4 Red Blood Count 4.00 L Hemoglobin 12.4 Hematocrit 38.0 Mean Corpuscular Volume 95.0 Mean Corpuscular Hemoglobin 31.0 Mean Corpuscular Hemoglobin Concent 32.6 Red Cell Distribution Width 14.6 H Platelet Count 353 Mean Platelet Volume 10.9 H Neutrophils % 57.1 Lymphocytes % 28.9 Monocytes % 8.4 Eosinophils % 4.6 Basophils % 0.3 Nucleated Red Blood Cells % 0.0 Neutrophils # 4.2 Lymphocytes # 2.1 Monocytes # 0.6 Eosinophils # 0.3 Basophils # 0.0 Nucleated Red Blood Cells # 0.0 Sodium Level 140 Potassium Level 4.0 Chloride Level 106 Carbon Dioxide Level 26 Anion Gap 12 Blood Urea Nitrogen 17 Creatinine 0.62 Glucose Level 89 Calcium Level 9.7 Total Bilirubin 0.3 Direct Bilirubin 0.00 Indirect Bilirubin 0.3 Aspartate Amino Transf (AST/SGOT) 26 Alanine Aminotransferase (ALT/SGPT) 49 Alkaline Phosphatase 47 Total Protein 7.0 Albumin 3.8 Globulin 3.20 Albumin/Globulin Ratio 1.18 Amylase Level 67 Medications Current Medications Docusate Sodium (Colace) 100 mg BID PO Last administered on 11/10/16 09:14; Admin Dose 100 MG; Start 11/06/16 at 22:00 Fludrocortisone Acetate (Florinef) 0.1 mg DAILY PO Last administered on 09:15; Admin Dose 0.1 MG; Start 11/07/16 at 09:00 Levothyroxine Sodium (Synthroid) 100 mcg DAILY@06 PO Last administered on 06:31; Admin Dose 100 MCG; Start 11/07/16 at 06:00 Hydrocortisone (Hydrocortisone 2.5% Cr) 1 applic BID TOP Last administered on 09:18; Admin Dose 1 APPLIC; Start 11/06/16 at 22:00 Midodrine (Proamatine) 10 mg BID PO Last administered on 11/10/16 09:15; Admin Dose 10 MG; Start 11/06/16 at 22:00 Atorvastatin Calcium (Lipitor) 10 mg DAILY@21 PO Last administered on 20:35; Admin Dose 10 MG; Start 11/06/16 at 22:00 Sodium Chloride (Nacl) 1 gm TID PO Last administered on 11/10/16 13:41; Admin Dose 1 GM; Start 11/06/16 at 22:00 Magnesium Hydroxide (Milk Of Mag) 30 ml Q6H PRN PO CONSTIPATION Last administered on 11/08/16 12:05; Admin Dose 30 ML; Start 11/06/16 at 21:45 Zolpidem Tartrate (Ambien) 5 mg HS PRN PO INSOMNIA Last administered on 21:43; Admin Dose 5 MG; Start 11/06/16 at 23:00 Senna (Senokot) 1 tab HS PO Last administered on 11/08/16 20:43; Admin Dose 1 TAB; Start 11/07/16 at 21:00; Status Future Hold Acetaminophen (Tylenol Tab) 650 mg Q4H PRN PO PAIN; Start 11/07/16 at 05:30 Bisacodyl (Dulcolax Supp) 10 mg DAILY PRN [place] CONSTIPATION; Start 11/07/16 at 05 :30 Lactulose (Enulose) 20 gm DAILY PRN PO CONSTIPATION; Start 11/07/16 at 05:30 Ciprofloxacin (Cipro) 500 mg BID@06,18 PO Last administered on 11/10/16 06:31 ; Admin Dose 500 MG; Start 11/08/16 at 18:00 Assessment/Plan Chief Complaint/Hosp Course IMPRESSION: 1. Status post subarachnoid hemorrhage due to cerebral artery aneurysm, status post coiling complicated by vasospasm and hydrocephalus requiring external ventricular drain. 2. UTI 3. Hypertension. 4. Hypothyroidism. 5. Anemia. 6. Hyperlipidemia. 7. Hypertensive heart disease. RECOMMENDATIONS: 1. PT/OT 2. Close management of blood pressure 3. Continue Cipro 4. Baseline labs stable Problems: ALEC HENRY MD, [facility] November 10, 2016 14:40
[2016-11-10 19:41] VITALS: BP 132/60; RESP 18
[2016-11-10] MEDS: DIPHENHYDRAMINE 25 MG CAP PO PRN (20:54)
[2016-11-10] MEDS: ATORVASTATIN 10 MG TAB PO SCH (20:57)
[2016-11-11] MEDS: CIPROFLOXACIN 500 MG TAB PO SCH ×2 (05:52→17:50)
[2016-11-11] MEDS: LEVOTHYROXINE 100 MCG TAB PO SCH (05:52)
[2016-11-11] MEDS: SODIUM CHLORIDE 1 GM TAB PO SCH ×3 (08:34→20:33)
[2016-11-11] MEDS: MIDODRINE 5 MG TAB PO SCH ×2 (08:34→20:33)
[2016-11-11] MEDS: ACETAMINOPHEN 325 MG TAB PO PRN (08:34)
[2016-11-11] MEDS: DOCUSATE SODIUM 100 MG CAP PO SCH ×2 (08:35→20:33)
[2016-11-11] MEDS: FLUDROCORTISONE 0.1 MG TAB PO SCH (08:35)
[2016-11-11] MEDS: HYDROCORTISONE 2.5% 20 GM CR TOP SCH ×2 (09:00→21:44)
--- NOTE | 2016-11-11 12:35 | CONS ---
Date/Time of Note Date/Time of Note DATE: 11/11/16 TIME: 12:33 Consult Date/Type/Reason Admit Date/Time November 06, 2016 at 20:04 Type of Consultation: IM/Pulm Subjective comfortable Objective Vital Signs Date Time Temp Pulse Resp B/P Pulse Ox O2 Delivery O2 Flow Rate FiO2 11/10/16 19:41 97.3 18 132/60 98 11/10/16 07:32 73 Room Air Intake and Output 11/10/16 11/10/16 11/11/16 15:00 23:00 07:00 Intake Total 720 ml 360 ml 240 ml Balance 720 ml 360 ml 240 ml pulm-cta min assist 100 feet Results/Medications Result Diagram: 11/10/1663011/10/16630 Medications Current Medications Docusate Sodium (Colace) 100 mg BID PO Last administered on 11/11/16 08:35; Admin Dose 100 MG; Start 11/06/16 at 22:00 Fludrocortisone Acetate (Florinef) 0.1 mg DAILY PO Last administered on 08:35; Admin Dose 0.1 MG; Start 11/07/16 at 09:00 Levothyroxine Sodium (Synthroid) 100 mcg DAILY@06 PO Last administered on 05:52; Admin Dose 100 MCG; Start 11/07/16 at 06:00 Hydrocortisone (Hydrocortisone 2.5% Cr) 1 applic BID TOP Last administered on 20:57; Admin Dose 1 APPLIC; Start 11/06/16 at 22:00 Midodrine (Proamatine) 10 mg BID PO Last administered on 11/11/16 08:34; Admin Dose 10 MG; Start 11/06/16 at 22:00 Atorvastatin Calcium (Lipitor) 10 mg DAILY@21 PO Last administered on 20:57; Admin Dose 10 MG; Start 11/06/16 at 22:00 Sodium Chloride (Nacl) 1 gm TID PO Last administered on 11/11/16 08:34; Admin Dose 1 GM; Start 11/06/16 at 22:00 Magnesium Hydroxide (Milk Of Mag) 30 ml Q6H PRN PO CONSTIPATION Last administered on 11/08/16 12:05; Admin Dose 30 ML; Start 11/06/16 at 21:45 Zolpidem Tartrate (Ambien) 5 mg HS PRN PO INSOMNIA Last administered on 21:43; Admin Dose 5 MG; Start 11/06/16 at 23:00 Senna (Senokot) 1 tab HS PO Last administered on 11/08/16 20:43; Admin Dose 1 TAB; Start 11/07/16 at 21:00; Status Future Hold Acetaminophen (Tylenol Tab) 650 mg Q4H PRN PO PAIN Last administered on 08:34; Admin Dose 650 MG; Start 11/07/16 at 05:30 Bisacodyl (Dulcolax Supp) 10 mg DAILY PRN [place] CONSTIPATION; Start 11/07/16 at 05 :30 Lactulose (Enulose) 20 gm DAILY PRN PO CONSTIPATION; Start 11/07/16 at 05:30 Ciprofloxacin (Cipro) 500 mg BID@06,18 PO Last administered on 11/11/16 05:52 ; Admin Dose 500 MG; Start 11/08/16 at 18:00 Diphenhydramine HCl (Benadryl) 25 mg Q6H PRN PO ITCHING Last administered on 20:54; Admin Dose 25 MG; Start 11/10/16 at 21:00 Assessment/Plan Additional Assessment/Plan Rehab- SAH-s/p coil embolization; hydrocephalus; L BG CVA Continue rehab program HTn anemia COURTNEY RUIZ MD November 11, 2016 12:35
[2016-11-11] MEDS: DIPHENHYDRAMINE 25 MG CAP PO PRN ×2 (13:12→21:44)
--- NOTE | 2016-11-11 15:41 | CONS ---
Date/Time of Note Date/Time of Note DATE: 11/11/16 TIME: 15:40 Consult Date/Type/Reason Admit Date/Time November 06, 2016 at 20:04 Type of Consultation: IM/Pulm Subjective Patient comfortable at rest no new events Confused overnight required a sitter Rash overnight now improved with addition of Benadryl Objective Vital Signs Date Time Temp Pulse Resp B/P Pulse Ox O2 Delivery O2 Flow Rate FiO2 11/10/16 19:41 97.3 18 132/60 98 11/10/16 07:32 73 Room Air Intake and Output 11/10/16 11/10/16 11/11/16 14:59 22:59 06:59 Intake Total 720 ml 360 ml 240 ml Balance 720 ml 360 ml 240 ml Exam GENERAL: VITAL SIGNS: per chart NECK: Supple. No JVD or lymphadenopathy. CARDIAC EXAM: S1, S2. No added sounds or murmurs. CHEST: clear bilaterally, No added sounds, rales or wheezes ABDOMEN: Soft, nontender. No guarding or rebound. EXTREMITIES: No cyanosis, clubbing or edema. NEUROLOGIC: Generalized weakness. No focal deficits. Results/Medications Result Diagram: 11/10/1663011/10/16630 Medications Current Medications Docusate Sodium (Colace) 100 mg BID PO Last administered on 11/11/16 08:35; Admin Dose 100 MG; Start 11/06/16 at 22:00 Fludrocortisone Acetate (Florinef) 0.1 mg DAILY PO Last administered on 08:35; Admin Dose 0.1 MG; Start 11/07/16 at 09:00 Levothyroxine Sodium (Synthroid) 100 mcg DAILY@06 PO Last administered on 05:52; Admin Dose 100 MCG; Start 11/07/16 at 06:00 Hydrocortisone (Hydrocortisone 2.5% Cr) 1 applic BID TOP Last administered on 20:57; Admin Dose 1 APPLIC; Start 11/06/16 at 22:00 Midodrine (Proamatine) 10 mg BID PO Last administered on 11/11/16 08:34; Admin Dose 10 MG; Start 11/06/16 at 22:00 Atorvastatin Calcium (Lipitor) 10 mg DAILY@21 PO Last administered on 20:57; Admin Dose 10 MG; Start 11/06/16 at 22:00 Sodium Chloride (Nacl) 1 gm TID PO Last administered on 11/11/16 12:40; Admin Dose 1 GM; Start 11/06/16 at 22:00 Magnesium Hydroxide (Milk Of Mag) 30 ml Q6H PRN PO CONSTIPATION Last administered on 11/08/16 12:05; Admin Dose 30 ML; Start 11/06/16 at 21:45 Zolpidem Tartrate (Ambien) 5 mg HS PRN PO INSOMNIA Last administered on 21:43; Admin Dose 5 MG; Start 11/06/16 at 23:00 Senna (Senokot) 1 tab HS PO Last administered on 11/08/16 20:43; Admin Dose 1 TAB; Start 11/07/16 at 21:00; Status Future Hold Acetaminophen (Tylenol Tab) 650 mg Q4H PRN PO PAIN Last administered on 08:34; Admin Dose 650 MG; Start 11/07/16 at 05:30 Bisacodyl (Dulcolax Supp) 10 mg DAILY PRN [place] CONSTIPATION; Start 11/07/16 at 05 :30 Lactulose (Enulose) 20 gm DAILY PRN PO CONSTIPATION; Start 11/07/16 at 05:30 Ciprofloxacin (Cipro) 500 mg BID@06,18 PO Last administered on 11/11/16 05:52 ; Admin Dose 500 MG; Start 11/08/16 at 18:00 Diphenhydramine HCl (Benadryl) 25 mg Q6H PRN PO ITCHING Last administered on 13:12; Admin Dose 25 MG; Start 11/10/16 at 21:00 Assessment/Plan Chief Complaint/Hosp Course IMPRESSION: 1. Status post subarachnoid hemorrhage due to cerebral artery aneurysm, status post coiling complicated by vasospasm and hydrocephalus requiring external ventricular drain. 2. UTI 3. Hypertension. 4. Hypothyroidism. 5. Anemia. 6. Hyperlipidemia. 7. Hypertensive heart disease. RECOMMENDATIONS: 1. PT/OT 2. Close management of blood pressure 3. Continue Cipro 4. Benadryl as needed for rash 5. Fall precautions Problems: ALEC HENRY MD, [facility] November 11, 2016 15:41
[2016-11-11] MEDS: ATORVASTATIN 10 MG TAB PO SCH (20:32)
[2016-11-11 20:50] VITALS: BP 137/86; RESP 18
[2016-11-12] MEDS: CIPROFLOXACIN 500 MG TAB PO SCH ×2 (05:11→17:54)
[2016-11-12] MEDS: LEVOTHYROXINE 100 MCG TAB PO SCH (05:11)
[2016-11-12 07:30] VITALS: BP 125/58; RESP 18
[2016-11-12] MEDS: SODIUM CHLORIDE 1 GM TAB PO SCH ×3 (08:29→20:48)
[2016-11-12] MEDS: MIDODRINE 5 MG TAB PO SCH ×2 (08:29→20:48)
[2016-11-12] MEDS: FLUDROCORTISONE 0.1 MG TAB PO SCH (08:29)
[2016-11-12] MEDS: HYDROCORTISONE 2.5% 20 GM CR TOP SCH ×2 (08:30→20:48)
[2016-11-12] MEDS: DOCUSATE SODIUM 100 MG CAP PO SCH ×2 (08:30→20:47)
--- NOTE | 2016-11-12 11:40 | CONS ---
Date/Time of Note Date/Time of Note DATE: 11/12/16 TIME: 11:40 Consult Date/Type/Reason Admit Date/Time November 06, 2016 at 20:04 Type of Consultation: IM/Pulm Subjective No new complaints Objective pulm-cta abd-soft min assist Vital Signs Date Time Temp Pulse Resp B/P Pulse Ox O2 Delivery O2 Flow Rate FiO2 11/12/16 07:30 98.5 66 18 125/58 95 11/10/16 07:32 Room Air Intake and Output 11/11/16 11/11/16 11/12/16 15:00 23:00 07:00 Intake Total 720 ml 480 ml 1350 ml Output Total 750 ml Balance 720 ml 480 ml 600 ml Results/Medications Result Diagram: 11/10/1663011/10/16630 Medications Current Medications Docusate Sodium (Colace) 100 mg BID PO Last administered on 11/12/16 08:30; Admin Dose 100 MG; Start 11/06/16 at 22:00 Fludrocortisone Acetate (Florinef) 0.1 mg DAILY PO Last administered on 08:29; Admin Dose 0.1 MG; Start 11/07/16 at 09:00 Levothyroxine Sodium (Synthroid) 100 mcg DAILY@06 PO Last administered on 05:11; Admin Dose 100 MCG; Start 11/07/16 at 06:00 Hydrocortisone (Hydrocortisone 2.5% Cr) 1 applic BID TOP Last administered on 08:30; Admin Dose 1 APPLIC; Start 11/06/16 at 22:00 Midodrine (Proamatine) 10 mg BID PO Last administered on 11/12/16 08:29; Admin Dose 10 MG; Start 11/06/16 at 22:00 Atorvastatin Calcium (Lipitor) 10 mg DAILY@21 PO Last administered on 20:32; Admin Dose 10 MG; Start 11/06/16 at 22:00 Sodium Chloride (Nacl) 1 gm TID PO Last administered on 11/12/16 08:29; Admin Dose 1 GM; Start 11/06/16 at 22:00 Magnesium Hydroxide (Milk Of Mag) 30 ml Q6H PRN PO CONSTIPATION Last administered on 11/08/16 12:05; Admin Dose 30 ML; Start 11/06/16 at 21:45 Zolpidem Tartrate (Ambien) 5 mg HS PRN PO INSOMNIA Last administered on 21:43; Admin Dose 5 MG; Start 11/06/16 at 23:00 Senna (Senokot) 1 tab HS PO Last administered on 11/08/16 20:43; Admin Dose 1 TAB; Start 11/07/16 at 21:00; Status Future Hold Acetaminophen (Tylenol Tab) 650 mg Q4H PRN PO PAIN Last administered on 08:34; Admin Dose 650 MG; Start 11/07/16 at 05:30 Bisacodyl (Dulcolax Supp) 10 mg DAILY PRN [place] CONSTIPATION; Start 11/07/16 at 05 :30 Lactulose (Enulose) 20 gm DAILY PRN PO CONSTIPATION; Start 11/07/16 at 05:30 Ciprofloxacin (Cipro) 500 mg BID@06,18 PO Last administered on 11/12/16 05:11; Admin Dose 500 MG; Start 11/08/16 at 18:00 Diphenhydramine HCl (Benadryl) 25 mg Q6H PRN PO ITCHING Last administered on 21:44; Admin Dose 25 MG; Start 11/10/16 at 21:00 Assessment/Plan Additional Assessment/Plan Rehab- SAH-s/p coil embolization; hydrocephalus; L BG CVA Continue rehab activities HTn anemia COURTNEY RUIZ MD Nov 12, 2016 11:40
--- NOTE | 2016-11-12 11:49 | CONS ---
Date/Time of Note Date/Time of Note DATE: 11/12/16 TIME: 11:48 Consult Date/Type/Reason Admit Date/Time November 06, 2016 at 20:04 Type of Consultation: IM/Pulm Subjective Still with cognitive defects Objective Vital Signs Date Time Temp Pulse Resp B/P Pulse Ox O2 Delivery O2 Flow Rate FiO2 11/12/16 07:30 98.5 66 18 125/58 95 11/10/16 07:32 Room Air Intake and Output 11/11/16 11/11/16 11/12/16 15:00 23:00 07:00 Intake Total 720 ml 480 ml 1350 ml Output Total 750 ml Balance 720 ml 480 ml 600 ml Exam GENERAL: VITAL SIGNS: per chart NECK: Supple. No JVD or lymphadenopathy. CARDIAC EXAM: S1, S2. No added sounds or murmurs. CHEST: clear bilaterally, No added sounds, rales or wheezes ABDOMEN: Soft, nontender. No guarding or rebound. EXTREMITIES: No cyanosis, clubbing or edema. NEUROLOGIC: Generalized weakness. No focal deficits. Results/Medications Result Diagram: 11/10/1663011/10/16630 Medications Current Medications Docusate Sodium (Colace) 100 mg BID PO Last administered on 11/12/16 08:30; Admin Dose 100 MG; Start 11/06/16 at 22:00 Fludrocortisone Acetate (Florinef) 0.1 mg DAILY PO Last administered on 08:29; Admin Dose 0.1 MG; Start 11/07/16 at 09:00 Levothyroxine Sodium (Synthroid) 100 mcg DAILY@06 PO Last administered on 05:11; Admin Dose 100 MCG; Start 11/07/16 at 06:00 Hydrocortisone (Hydrocortisone 2.5% Cr) 1 applic BID TOP Last administered on 08:30; Admin Dose 1 APPLIC; Start 11/06/16 at 22:00 Midodrine (Proamatine) 10 mg BID PO Last administered on 11/12/16 08:29; Admin Dose 10 MG; Start 11/06/16 at 22:00 Atorvastatin Calcium (Lipitor) 10 mg DAILY@21 PO Last administered on 20:32; Admin Dose 10 MG; Start 11/06/16 at 22:00 Sodium Chloride (Nacl) 1 gm TID PO Last administered on 11/12/16 08:29; Admin Dose 1 GM; Start 11/06/16 at 22:00 Magnesium Hydroxide (Milk Of Mag) 30 ml Q6H PRN PO CONSTIPATION Last administered on 11/08/16 12:05; Admin Dose 30 ML; Start 11/06/16 at 21:45 Zolpidem Tartrate (Ambien) 5 mg HS PRN PO INSOMNIA Last administered on 21:43; Admin Dose 5 MG; Start 11/06/16 at 23:00 Senna (Senokot) 1 tab HS PO Last administered on 11/08/16 20:43; Admin Dose 1 TAB; Start 11/07/16 at 21:00; Status Future Hold Acetaminophen (Tylenol Tab) 650 mg Q4H PRN PO PAIN Last administered on 08:34; Admin Dose 650 MG; Start 11/07/16 at 05:30 Bisacodyl (Dulcolax Supp) 10 mg DAILY PRN [place] CONSTIPATION; Start 11/07/16 at 05 :30 Lactulose (Enulose) 20 gm DAILY PRN PO CONSTIPATION; Start 11/07/16 at 05:30 Ciprofloxacin (Cipro) 500 mg BID@06,18 PO Last administered on 11/12/16 05:11; Admin Dose 500 MG; Start 11/08/16 at 18:00 Diphenhydramine HCl (Benadryl) 25 mg Q6H PRN PO ITCHING Last administered on 21:44; Admin Dose 25 MG; Start 11/10/16 at 21:00 Assessment/Plan Chief Complaint/Hosp Course IMPRESSION: 1. Status post subarachnoid hemorrhage due to cerebral artery aneurysm, status post coiling complicated by vasospasm and hydrocephalus requiring external ventricular drain. 2. UTI 3. Hypertension. 4. Hypothyroidism. 5. Anemia. 6. Hyperlipidemia. 7. Hypertensive heart disease. RECOMMENDATIONS: 1. PT/OT 2. Close management of blood pressure 3. DC antibiotics soon 4. Benadryl as needed for rash 5. Fall precautions Problems: [facility], [facility] Nov 12, 2016 11:49
[2016-11-12] MEDS: DIPHENHYDRAMINE 25 MG CAP PO PRN (17:56)
[2016-11-12 20:00] VITALS: BP 118/56; RESP 18
[2016-11-12] MEDS: ATORVASTATIN 10 MG TAB PO SCH (20:48)
[2016-11-12] MEDS: ZOLPIDEM 5 MG TAB PO PRN (20:49)
[2016-11-13] MEDS: DIPHENHYDRAMINE 25 MG CAP PO PRN ×2 (02:19→18:06)
[2016-11-13] MEDS: CIPROFLOXACIN 500 MG TAB PO SCH ×2 (05:35→17:17)
[2016-11-13] MEDS: LEVOTHYROXINE 100 MCG TAB PO SCH (05:36)
[2016-11-13] MEDS: SODIUM CHLORIDE 1 GM TAB PO SCH ×3 (09:20→20:23)
[2016-11-13] MEDS: FLUDROCORTISONE 0.1 MG TAB PO SCH (09:26)
[2016-11-13] MEDS: DOCUSATE SODIUM 100 MG CAP PO SCH ×2 (09:26→20:24)
[2016-11-13] MEDS: MIDODRINE 5 MG TAB PO SCH ×2 (09:26→20:24)
[2016-11-13] MEDS: HYDROCORTISONE 2.5% 20 GM CR TOP SCH ×2 (09:27→20:29)
--- NOTE | 2016-11-13 11:40 | CONS ---
Date/Time of Note Date/Time of Note DATE: 11/13/16 TIME: 11:40 Consult Date/Type/Reason Admit Date/Time November 06, 2016 at 20:04 Type of Consultation: IM/Pulm Subjective Comfortable Objective pulm-cta cga/sba ambulation Vital Signs Date Time Temp Pulse Resp B/P Pulse Ox O2 Delivery O2 Flow Rate FiO2 11/12/16 20:00 98.7 69 18 118/56 97 11/10/16 07:32 Room Air Intake and Output 11/12/16 11/12/16 11/13/16 15:00 23:00 07:00 Intake Total 320 ml Balance 320 ml Results/Medications Result Diagram: 11/10/1663011/10/1631 Medications Current Medications Docusate Sodium (Colace) 100 mg BID PO Last administered on 11/13/16 09:26; Admin Dose 100 MG; Start 11/06/16 at 22:00 Fludrocortisone Acetate (Florinef) 0.1 mg DAILY PO Last administered on 09:26; Admin Dose 0.1 MG; Start 11/07/16 at 09:00 Levothyroxine Sodium (Synthroid) 100 mcg DAILY@06 PO Last administered on 05:36; Admin Dose 100 MCG; Start 11/07/16 at 06:00 Hydrocortisone (Hydrocortisone 2.5% Cr) 1 applic BID TOP Last administered on 09:27; Admin Dose 1 APPLIC; Start 11/06/16 at 22:00 Midodrine (Proamatine) 10 mg BID PO Last administered on 11/13/16 09:26; Admin Dose 10 MG; Start 11/06/16 at 22:00 Atorvastatin Calcium (Lipitor) 10 mg DAILY@21 PO Last administered on 11/12/16 20:48; Admin Dose 10 MG; Start 11/06/16 at 22:00 Sodium Chloride (Nacl) 1 gm TID PO Last administered on 11/13/16 09:20; Admin Dose 1 GM; Start 11/06/16 at 22:00 Magnesium Hydroxide (Milk Of Mag) 30 ml Q6H PRN PO CONSTIPATION Last administered on 11/08/16 12:05; Admin Dose 30 ML; Start 11/06/16 at 21:45 Zolpidem Tartrate (Ambien) 5 mg HS PRN PO INSOMNIA Last administered on 20:49; Admin Dose 5 MG; Start 11/06/16 at 23:00 Senna (Senokot) 1 tab HS PO Last administered on 11/08/16 20:43; Admin Dose 1 TAB; Start 11/07/16 at 21:00; Status Future Hold Acetaminophen (Tylenol Tab) 650 mg Q4H PRN PO PAIN Last administered on 08:34; Admin Dose 650 MG; Start 11/07/16 at 05:30 Bisacodyl (Dulcolax Supp) 10 mg DAILY PRN [place] CONSTIPATION; Start 11/07/16 at 05 :30 Lactulose (Enulose) 20 gm DAILY PRN PO CONSTIPATION; Start 11/07/16 at 05:30 Ciprofloxacin (Cipro) 500 mg BID@06,18 PO Last administered on 11/13/16 05:35; Admin Dose 500 MG; Start 11/08/16 at 18:00 Diphenhydramine HCl (Benadryl) 25 mg Q6H PRN PO ITCHING Last administered on 02:19; Admin Dose 25 MG; Start 11/10/16 at 21:00 Assessment/Plan Additional Assessment/Plan Rehab- SAH-s/p coil embolization; hydrocephalus; L BG CVA Continue rehab activities HTn anemia COURTNEY RUIZ MD Nov 13, 2016 11:40
--- NOTE | 2016-11-13 14:18 | CONS ---
Date/Time of Note Date/Time of Note DATE: 11/13/16 TIME: 14:18 Consult Date/Type/Reason Admit Date/Time November 06, 2016 at 20:04 Type of Consultation: IM/Pulm Subjective Patient remains stable continues therapy Objective Vital Signs Date Time Temp Pulse Resp B/P Pulse Ox O2 Delivery O2 Flow Rate FiO2 11/12/16 20:00 98.7 69 18 118/56 97 11/10/16 07:32 Room Air Intake and Output 11/12/16 11/12/16 11/13/16 15:00 23:00 07:00 Intake Total 320 ml Balance 320 ml Exam GENERAL: VITAL SIGNS: per chart NECK: Supple. No JVD or lymphadenopathy. CARDIAC EXAM: S1, S2. No added sounds or murmurs. CHEST: clear bilaterally, No added sounds, rales or wheezes ABDOMEN: Soft, nontender. No guarding or rebound. EXTREMITIES: No cyanosis, clubbing or edema. NEUROLOGIC: Generalized weakness. No focal deficits. Results/Medications Result Diagram: 11/10/1663011/10/16630 Medications Current Medications Docusate Sodium (Colace) 100 mg BID PO Last administered on 11/13/16 09:26; Admin Dose 100 MG; Start 11/06/16 at 22:00 Fludrocortisone Acetate (Florinef) 0.1 mg DAILY PO Last administered on 09:26; Admin Dose 0.1 MG; Start 11/07/16 at 09:00 Levothyroxine Sodium (Synthroid) 100 mcg DAILY@06 PO Last administered on 05:36; Admin Dose 100 MCG; Start 11/07/16 at 06:00 Hydrocortisone (Hydrocortisone 2.5% Cr) 1 applic BID TOP Last administered on 09:27; Admin Dose 1 APPLIC; Start 11/06/16 at 22:00 Midodrine (Proamatine) 10 mg BID PO Last administered on 11/13/16 09:26; Admin Dose 10 MG; Start 11/06/16 at 22:00 Atorvastatin Calcium (Lipitor) 10 mg DAILY@21 PO Last administered on 11/12/16 20:48; Admin Dose 10 MG; Start 11/06/16 at 22:00 Sodium Chloride (Nacl) 1 gm TID PO Last administered on 11/13/16 13:02; Admin Dose 1 GM; Start 11/06/16 at 22:00 Magnesium Hydroxide (Milk Of Mag) 30 ml Q6H PRN PO CONSTIPATION Last administered on 11/08/16 12:05; Admin Dose 30 ML; Start 11/06/16 at 21:45 Zolpidem Tartrate (Ambien) 5 mg HS PRN PO INSOMNIA Last administered on 20:49; Admin Dose 5 MG; Start 11/06/16 at 23:00 Senna (Senokot) 1 tab HS PO Last administered on 11/08/16 20:43; Admin Dose 1 TAB; Start 11/07/16 at 21:00; Status Future Hold Acetaminophen (Tylenol Tab) 650 mg Q4H PRN PO PAIN Last administered on 08:34; Admin Dose 650 MG; Start 11/07/16 at 05:30 Bisacodyl (Dulcolax Supp) 10 mg DAILY PRN [place] CONSTIPATION; Start 11/07/16 at 05 :30 Lactulose (Enulose) 20 gm DAILY PRN PO CONSTIPATION; Start 11/07/16 at 05:30 Ciprofloxacin (Cipro) 500 mg BID@06,18 PO Last administered on 11/13/16 05:35; Admin Dose 500 MG; Start 11/08/16 at 18:00 Diphenhydramine HCl (Benadryl) 25 mg Q6H PRN PO ITCHING Last administered on 02:19; Admin Dose 25 MG; Start 11/10/16 at 21:00 Assessment/Plan Chief Complaint/Hosp Course IMPRESSION: 1. Status post subarachnoid hemorrhage due to cerebral artery aneurysm, status post coiling complicated by vasospasm and hydrocephalus requiring external ventricular drain. 2. UTI 3. Hypertension. 4. Hypothyroidism. 5. Anemia. 6. Hyperlipidemia. 7. Hypertensive heart disease. RECOMMENDATIONS: 1. PT/OT 2. Close management of blood pressure 3. DC antibiotics soon 4. Benadryl as needed for rash 5. Fall precautions Problems: ALEC HENRY MD, [facility] Nov 13, 2016 14:18
[2016-11-13] MEDS: ATORVASTATIN 10 MG TAB PO SCH (20:24)
[2016-11-14] MEDS: CIPROFLOXACIN 500 MG TAB PO SCH ×2 (06:58→18:11)
[2016-11-14] MEDS: LEVOTHYROXINE 100 MCG TAB PO SCH (06:58)
[2016-11-14 07:30] VITALS: BP 110/56; RESP 18
[2016-11-14] MEDS: HYDROCORTISONE 2.5% 20 GM CR TOP SCH ×3 (09:00→20:37)
[2016-11-14] MEDS: MIDODRINE 5 MG TAB PO SCH ×2 (09:36→20:38)
[2016-11-14] MEDS: DOCUSATE SODIUM 100 MG CAP PO SCH ×2 (09:36→20:36)
[2016-11-14] MEDS: SODIUM CHLORIDE 1 GM TAB PO SCH ×3 (09:36→20:36)
[2016-11-14] MEDS: FLUDROCORTISONE 0.1 MG TAB PO SCH (09:36)
[2016-11-14] MEDS: ATORVASTATIN 10 MG TAB PO SCH (20:36)
[2016-11-15] MEDS: ACETAMINOPHEN 325 MG TAB PO PRN ×2 (00:36→20:10)
[2016-11-15] MEDS: DIPHENHYDRAMINE 25 MG CAP PO PRN ×2 (00:36→20:10)
[2016-11-15] MEDS: LEVOTHYROXINE 100 MCG TAB PO SCH (06:43)
[2016-11-15] MEDS: CIPROFLOXACIN 500 MG TAB PO SCH ×2 (06:43→18:13)
[2016-11-15] MEDS: MIDODRINE 5 MG TAB PO SCH ×2 (09:41→20:12)
[2016-11-15] MEDS: SODIUM CHLORIDE 1 GM TAB PO SCH ×3 (09:41→20:10)
[2016-11-15] MEDS: FLUDROCORTISONE 0.1 MG TAB PO SCH (09:41)
[2016-11-15] MEDS: DOCUSATE SODIUM 100 MG CAP PO SCH ×2 (09:41→20:10)
[2016-11-15] MEDS: HYDROCORTISONE 2.5% 20 GM CR TOP SCH ×2 (09:42→20:16)
--- NOTE | 2016-11-15 10:53 | CONS ---
Date/Time of Note Date/Time of Note DATE: 11/15/16 TIME: 10:52 Consult Date/Type/Reason Admit Date/Time November 06, 2016 at 20:04 Type of Consultation: IM/Pulm Subjective Improving Objective pulm-cta abd-soft Vital Signs Date Time Temp Pulse Resp B/P Pulse Ox O2 Delivery O2 Flow Rate FiO2 11/14/16 07:30 98.9 69 18 110/56 98 Intake and Output 11/14/16 11/14/16 11/15/16 15:00 23:00 07:00 Intake Total 770 ml 260 ml Balance 770 ml 260 ml Results/Medications Medications Current Medications Docusate Sodium (Colace) 100 mg BID PO Last administered on 11/15/16 09:41; Admin Dose 100 MG; Start 11/06/16 at 22:00 Fludrocortisone Acetate (Florinef) 0.1 mg DAILY PO Last administered on 09:41; Admin Dose 0.1 MG; Start 11/07/16 at 09:00 Levothyroxine Sodium (Synthroid) 100 mcg DAILY@06 PO Last administered on 06:43; Admin Dose 100 MCG; Start 11/07/16 at 06:00 Hydrocortisone (Hydrocortisone 2.5% Cr) 1 applic BID TOP Last administered on 09:42; Admin Dose 1 APPLIC; Start 11/06/16 at 22:00 Midodrine (Proamatine) 10 mg BID PO Last administered on 11/15/16 09:41; Admin Dose 10 MG; Start 11/06/16 at 22:00 Atorvastatin Calcium (Lipitor) 10 mg DAILY@21 PO Last administered on 11/14/16 20:36; Admin Dose 10 MG; Start 11/06/16 at 22:00 Sodium Chloride (Nacl) 1 gm TID PO Last administered on 11/15/16 09:41; Admin Dose 1 GM; Start 11/06/16 at 22:00 Magnesium Hydroxide (Milk Of Mag) 30 ml Q6H PRN PO CONSTIPATION Last administered on 11/08/16 12:05; Admin Dose 30 ML; Start 11/06/16 at 21:45 Zolpidem Tartrate (Ambien) 5 mg HS PRN PO INSOMNIA Last administered on 20:49; Admin Dose 5 MG; Start 11/06/16 at 23:00 Senna (Senokot) 1 tab HS PO Last administered on 11/08/16 20:43; Admin Dose 1 TAB; Start 11/07/16 at 21:00; Status Future Hold Acetaminophen (Tylenol Tab) 650 mg Q4H PRN PO PAIN Last administered on 00:36; Admin Dose 650 MG; Start 11/07/16 at 05:30 Bisacodyl (Dulcolax Supp) 10 mg DAILY PRN [place] CONSTIPATION; Start 11/07/16 at 05 :30 Lactulose (Enulose) 20 gm DAILY PRN PO CONSTIPATION; Start 11/07/16 at 05:30 Ciprofloxacin (Cipro) 500 mg BID@06,18 PO Last administered on 11/15/16 06:43; Admin Dose 500 MG; Start 11/08/16 at 18:00 Diphenhydramine HCl (Benadryl) 25 mg Q6H PRN PO ITCHING Last administered on 00:36; Admin Dose 25 MG; Start 11/10/16 at 21:00 Assessment/Plan Additional Assessment/Plan Rehab- SAH-s/p coil embolization; hydrocephalus; L BG CVA Continue rehab program HTN anemia COURTNEY RUIZ MD Nov 15, 2016 10:53
--- NOTE | 2016-11-15 12:42 | CONS ---
Date/Time of Note Date/Time of Note DATE: 11/15/16 TIME: 12:40 Assessment/Plan Assessment/Plan Additional Assessment/Plan Assessment recommendations; 1. Patient admitted for subarachnoid hemorrhage status post ventriculostomy with marked overall clinical improvement. 2. History of anemia, hypo-thyroidism, hyperlipidemia and hypertension. Continue current treatment. Patient responding well to current treatment regimen. Consultation Date/Type/Reason Admit Date/Time November 06, 2016 at 20:04 Initial Consult Date Type of Consultation: IM/Pulm 24 HR Interval Summary Free Text/Dictation Patient is doing very well. Remains completely awake alert. Denies any shortness of breath, chest pain, able to eat well denies any visual changes or any focal motor weakness. Maria T; elderly lady, awake alert currently in no distress. Exam/Review of Systems Vital Signs Vitals Vital Signs Date Time Temp Pulse Resp B/P Pulse Ox O2 Delivery O2 Flow Rate FiO2 11/14/16 07:30 98.9 69 18 110/56 98 Intake and Output 11/14/16 11/14/16 11/15/16 15:00 23:00 07:00 Intake Total 770 ml 260 ml Balance 770 ml 260 ml Exam HEENT exam; supple neck, no JVD. No lymphadenopathy midline trachea. No thyromegaly. Pharynx is clear. Patient has fair dentition. Pupils are midsize and reactive to light. Extraocular movements are intact. There is regrowth of hair involving the right parietal area. Chest examination; clear to auscultation. S1-S2 audible, no murmurs. Regular rhythm. Abdomen examination; soft, nontender. No organomegaly. Bowel sounds audible. Extremity examination; no peripheral edema. EQUIPMENT INSTALLER examination; no focal motor deficit. Medications Medications Current Medications Docusate Sodium (Colace) 100 mg BID PO Last administered on 11/15/16 09:41; Admin Dose 100 MG; Start 11/06/16 at 22:00 Fludrocortisone Acetate (Florinef) 0.1 mg DAILY PO Last administered on 09:41; Admin Dose 0.1 MG; Start 11/07/16 at 09:00 Levothyroxine Sodium (Synthroid) 100 mcg DAILY@06 PO Last administered on 06:43; Admin Dose 100 MCG; Start 11/07/16 at 06:00 Hydrocortisone (Hydrocortisone 2.5% Cr) 1 applic BID TOP Last administered on 09:42; Admin Dose 1 APPLIC; Start 11/06/16 at 22:00 Midodrine (Proamatine) 10 mg BID PO Last administered on 11/15/16 09:41; Admin Dose 10 MG; Start 11/06/16 at 22:00 Atorvastatin Calcium (Lipitor) 10 mg DAILY@21 PO Last administered on 11/14/16 20:36; Admin Dose 10 MG; Start 11/06/16 at 22:00 Sodium Chloride (Nacl) 1 gm TID PO Last administered on 11/15/16 12:17; Admin Dose 1 GM; Start 11/06/16 at 22:00 Magnesium Hydroxide (Milk Of Mag) 30 ml Q6H PRN PO CONSTIPATION Last administered on 11/08/16 12:05; Admin Dose 30 ML; Start 11/06/16 at 21:45 Zolpidem Tartrate (Ambien) 5 mg HS PRN PO INSOMNIA Last administered on 20:49; Admin Dose 5 MG; Start 11/06/16 at 23:00 Senna (Senokot) 1 tab HS PO Last administered on 11/08/16 20:43; Admin Dose 1 TAB; Start 11/07/16 at 21:00; Status Future Hold Acetaminophen (Tylenol Tab) 650 mg Q4H PRN PO PAIN Last administered on 00:36; Admin Dose 650 MG; Start 11/07/16 at 05:30 Bisacodyl (Dulcolax Supp) 10 mg DAILY PRN [place] CONSTIPATION; Start 11/07/16 at 05 :30 Lactulose (Enulose) 20 gm DAILY PRN PO CONSTIPATION; Start 11/07/16 at 05:30 Ciprofloxacin (Cipro) 500 mg BID@,18 PO Last administered on 11/15/16 06:43; Admin Dose 500 MG; Start 11/08/16 at 18:00 Diphenhydramine HCl (Benadryl) 25 mg Q6H PRN PO ITCHING Last administered on 00:36; Admin Dose 25 MG; Start 11/10/16 at 21:00 NELSY PZA Nov 15, 2016 12:42
[2016-11-15] MEDS: ATORVASTATIN 10 MG TAB PO SCH (20:10)
[2016-11-16] MEDS: LEVOTHYROXINE 100 MCG TAB PO SCH (06:54)
[2016-11-16] MEDS: CIPROFLOXACIN 500 MG TAB PO SCH (06:54)
[2016-11-16 07:30] VITALS: BP 122/56; RESP 18
[2016-11-16] MEDS: FLUDROCORTISONE 0.1 MG TAB PO SCH (08:19)
[2016-11-16] MEDS: DOCUSATE SODIUM 100 MG CAP PO SCH ×2 (08:19→20:59)
[2016-11-16] MEDS: MIDODRINE 5 MG TAB PO SCH ×2 (08:20→21:00)
[2016-11-16] MEDS: HYDROCORTISONE 2.5% 20 GM CR TOP SCH ×2 (08:20→21:01)
[2016-11-16] MEDS: SODIUM CHLORIDE 1 GM TAB PO SCH ×3 (08:22→21:00)
--- NOTE | 2016-11-16 12:07 | CONS ---
Date/Time of Note Date/Time of Note DATE: 11/16/16 TIME: 12:06 Consult Date/Type/Reason Admit Date/Time November 06, 2016 at 20:04 Type of Consultation: IM/Pulm Objective Vital Signs Date Time Temp Pulse Resp B/P Pulse Ox O2 Delivery O2 Flow Rate FiO2 11/16/16 07:30 98.7 80 18 122/56 96 Intake and Output 11/15/16 11/15/16 11/16/16 15:00 23:00 07:00 Intake Total 540 ml 110 ml Balance 540 ml 110 ml INTERDISCIPLINARY TEAM CONFERENCE BOWEL- Cont BLADDER-Cont SKIN- intact OT- DRESSING-min BATHING-min TOILETING-min 150 feet PT- BED MOBILITY-cga TRANSFERS-cga AMBULATION-cga 150 feet SPEECH- COGNITION-mod A/P- Interdisciplinary team conference held today. Please see interdisciplinary sheet. Working toward d.c. on 11/19 with post discharge follow up of physical therapy, occupational therapy. Results/Medications Medications Current Medications Docusate Sodium (Colace) 100 mg BID PO Last administered on 11/16/16 08:19; Admin Dose 100 MG; Start 11/06/16 at 22:00 Fludrocortisone Acetate (Florinef) 0.1 mg DAILY PO Last administered on 08:19; Admin Dose 0.1 MG; Start 11/07/16 at 09:00 Levothyroxine Sodium (Synthroid) 100 mcg DAILY@06 PO Last administered on 06:54; Admin Dose 100 MCG; Start 11/07/16 at 06:00 Hydrocortisone (Hydrocortisone 2.5% Cr) 1 applic BID TOP Last administered on 08:20; Admin Dose 1 APPLIC; Start 11/06/16 at 22:00 Midodrine (Proamatine) 10 mg BID PO Last administered on 11/16/16 08:20; Admin Dose 10 MG; Start 11/06/16 at 22:00 Atorvastatin Calcium (Lipitor) 10 mg DAILY@21 PO Last administered on 11/15/16 20:10; Admin Dose 10 MG; Start 11/06/16 at 22:00 Sodium Chloride (Nacl) 1 gm TID PO Last administered on 11/16/16 08:22; Admin Dose 1 GM; Start 11/06/16 at 22:00 Magnesium Hydroxide (Milk Of Mag) 30 ml Q6H PRN PO CONSTIPATION Last administered on 11/08/16 12:05; Admin Dose 30 ML; Start 11/06/16 at 21:45 Zolpidem Tartrate (Ambien) 5 mg HS PRN PO INSOMNIA Last administered on 20:49; Admin Dose 5 MG; Start 11/06/16 at 23:00 Senna (Senokot) 1 tab HS PO Last administered on 11/08/16 20:43; Admin Dose 1 TAB; Start 11/07/16 at 21:00; Status Future Hold Acetaminophen (Tylenol Tab) 650 mg Q4H PRN PO PAIN Last administered on 20:10; Admin Dose 650 MG; Start 11/07/16 at 05:30 Bisacodyl (Dulcolax Supp) 10 mg DAILY PRN [place] CONSTIPATION; Start 11/07/16 at 05 :30 Lactulose (Enulose) 20 gm DAILY PRN PO CONSTIPATION; Start 11/07/16 at 05:30 Ciprofloxacin (Cipro) 500 mg BID@06,18 PO Last administered on 11/16/16 06:54; Admin Dose 500 MG; Start 11/08/16 at 18:00 Diphenhydramine HCl (Benadryl) 25 mg Q6H PRN PO ITCHING Last administered on 20:10; Admin Dose 25 MG; Start 11/10/16 at 21:00 COURTNEY RUIZ MD Nov 16, 2016 12:07 COURTNEY RUIZ MD Nov 16, 2016 12:07
--- NOTE | 2016-11-16 13:00 | RADRPT ---
PROCEDURE: CT Brain without contrast. CLINICAL INDICATION: Hemorrhage; Neurologic deficit TECHNIQUE: A CT of the brain was performed on multidetector high-resolution CT scanner utilizing a xial sections from the skull base through the vertex without contrast. One or more of the following dose reduction techniques were used: Automated exposure control, Adjustment of the mA and/or kV acc ording to patient size, and/or use of iterative reconstruction technique. DOSE: CTDI = 45 mGy and the DLP = 630 mGy-cm. COMPARISON: Head CT 10/23/2016 FINDINGS: Coil mass at the left parasellar region corresponding to prior aneurysm embolization. There is reso lution of prior hyperdense subarachnoid hemorrhage. The ventricles are diffusely enlarged and mildly increased in size from prior. There is development of periventricular areas of hypoattenuation. Ol d right frontal ventriculostomy tract noted. No significant opacification of the visualized paranasa l sinuses or mastoids. IMPRESSION: Status post left parasellar aneurysm embolization. There is resolution of prior hyperdense subarachnoid hemorrhage. Mild worsening of hydrocephalus with evidence of transependymal edema. Old right frontal ventriculostomy tract noted. Attempted call report was made to Dr. RUIZ at 11/16/2016 12:59:34 PM who was not available. Gertrude eldridge discussed with keno attendant SAADIA to forward to Dr. RUIZ. RPTAT: AA .Eliot Figueroa MD, Date Time Electronically viewed and signed by .Eliot Figueroa MD, on 11/16/2016 13:00 .T/
--- NOTE | 2016-11-16 13:05 | CONS ---
Date/Time of Note Date/Time of Note DATE: 11/16/16 TIME: 13:03 Consult Date/Type/Reason Admit Date/Time November 06, 2016 at 20:04 Type of Consultation: IM/Pulm Subjective Patient comfortable still mildly disoriented. Some noncompliance with medications. Objective Vital Signs Date Time Temp Pulse Resp B/P Pulse Ox O2 Delivery O2 Flow Rate FiO2 11/16/16 07:30 98.7 80 18 122/56 96 Intake and Output 11/15/16 11/15/16 11/16/16 15:00 23:00 07:00 Intake Total 540 ml 110 ml Balance 540 ml 110 ml Exam GENERAL: VITAL SIGNS: per chart NECK: Supple. No JVD or lymphadenopathy. CARDIAC EXAM: S1, S2. No added sounds or murmurs. CHEST: clear bilaterally, No added sounds, rales or wheezes ABDOMEN: Soft, nontender. No guarding or rebound. EXTREMITIES: No cyanosis, clubbing or edema. NEUROLOGIC: Generalized weakness. No focal deficits. Results/Medications Medications Current Medications Docusate Sodium (Colace) 100 mg BID PO Last administered on 11/16/16 08:19; Admin Dose 100 MG; Start 11/06/16 at 22:00 Fludrocortisone Acetate (Florinef) 0.1 mg DAILY PO Last administered on 08:19; Admin Dose 0.1 MG; Start 11/07/16 at 09:00 Levothyroxine Sodium (Synthroid) 100 mcg DAILY@06 PO Last administered on 06:54; Admin Dose 100 MCG; Start 11/07/16 at 06:00 Hydrocortisone (Hydrocortisone 2.5% Cr) 1 applic BID TOP Last administered on 08:20; Admin Dose 1 APPLIC; Start 11/06/16 at 22:00 Midodrine (Proamatine) 10 mg BID PO Last administered on 11/16/16 08:20; Admin Dose 10 MG; Start 11/06/16 at 22:00 Atorvastatin Calcium (Lipitor) 10 mg DAILY@21 PO Last administered on 11/15/16 20:10; Admin Dose 10 MG; Start 11/06/16 at 22:00 Sodium Chloride (Nacl) 1 gm TID PO Last administered on 11/16/16 08:22; Admin Dose 1 GM; Start 11/06/16 at 22:00 Magnesium Hydroxide (Milk Of Mag) 30 ml Q6H PRN PO CONSTIPATION Last administered on 11/08/16 12:05; Admin Dose 30 ML; Start 11/06/16 at 21:45 Zolpidem Tartrate (Ambien) 5 mg HS PRN PO INSOMNIA Last administered on 20:49; Admin Dose 5 MG; Start 11/06/16 at 23:00 Senna (Senokot) 1 tab HS PO Last administered on 11/08/16 20:43; Admin Dose 1 TAB; Start 11/07/16 at 21:00; Status Future Hold Acetaminophen (Tylenol Tab) 650 mg Q4H PRN PO PAIN Last administered on 20:10; Admin Dose 650 MG; Start 11/07/16 at 05:30 Bisacodyl (Dulcolax Supp) 10 mg DAILY PRN [place] CONSTIPATION; Start 11/07/16 at 05 :30 Lactulose (Enulose) 20 gm DAILY PRN PO CONSTIPATION; Start 11/07/16 at 05:30 Ciprofloxacin (Cipro) 500 mg BID@06,18 PO Last administered on 11/16/16 06:54; Admin Dose 500 MG; Start 11/08/16 at 18:00 Diphenhydramine HCl (Benadryl) 25 mg Q6H PRN PO ITCHING Last administered on 20:10; Admin Dose 25 MG; Start 11/10/16 at 21:00 Assessment/Plan Chief Complaint/Hosp Course IMPRESSION: 1. Status post subarachnoid hemorrhage due to cerebral artery aneurysm, status post coiling complicated by vasospasm and hydrocephalus requiring external ventricular drain. 2. UTI 3. Hypertension. 4. Hypothyroidism. 5. Anemia. 6. Hyperlipidemia. 7. Hypertensive heart disease. RECOMMENDATIONS: 1. PT/OT 2. Close management of blood pressure 3. DC antibiotics. 4. Benadryl as needed for rash 5. Fall precautions Problems: ALEC HENRY MD, [facility] Nov 16, 2016 13:05
[2016-11-16 19:23] VITALS: BP 116/53; RESP 19
[2016-11-16] MEDS: ATORVASTATIN 10 MG TAB PO SCH (21:00)
[2016-11-16] MEDS: DIPHENHYDRAMINE 25 MG CAP PO PRN (21:01)
[2016-11-17] MEDS: LEVOTHYROXINE 100 MCG TAB PO SCH (05:52)
[2016-11-17 06:59] LABS: ADD SCAN DIFF NO
[2016-11-17 07:01] LABS: BASOPHILS % 0.7 % (0.0-2.0); EOSINOPHILS # 0.2 10^3/ul (0.0-0.5); EOSINOPHILS % 2.7 % (0.0-7.0); HEMATOCRIT 38.6 % (37.0-47.0); HEMOGLOBIN 12.4 g/dl (12.0-16.0); LYMPHOCYTES # 2.5 10^3/ul (0.8-2.9); LYMPHOCYTES % 43.1 % (15.0-51.0); MEAN CORPUSCULAR HEMOGLOBIN 30.8 pg (29.0-33.0); MEAN CORPUSCULAR HGB CONC 32.1 g/dl (32.0-37.0); MEAN CORPUSCULAR VOLUME 95.8 fl (82.0-101.0); MEAN PLATELET VOLUME 11.1 fl (7.4-10.4); MONOCYTE # 0.5 10^3/ul (0.3-0.9); MONOCYTES % 8.7 % (0.0-11.0); NEUTROPHIL # 2.6 10^3/ul (1.6-7.5); NEUTROPHILS % 44.3 % (39.0-77.0); PLATELET COUNT 277 10^3/UL (140-415); RED BLOOD COUNT 4.03 10^6/ul (4.20-5.40); RED CELL DISTRIBUTION WIDTH 14.6 % (11.5-14.5); WHITE BLOOD COUNT 5.9 10^3/ul (4.8-10.8)
[2016-11-17 07:38] LABS: CALCIUM 9.2 mg/dl (8.4-10.2); CREATININE 0.63 mg/dl (0.44-1.00); MAGNESIUM 2.1 mg/dl (1.7-2.5); PHOSPHORUS 3.8 mg/dl (2.5-4.9); POTASSIUM 3.6 mmol/L (3.5-5.1)
[2016-11-17 08:00] VITALS: BP 114/56; PULSE 72; RESP 20
[2016-11-17] MEDS: DOCUSATE SODIUM 100 MG CAP PO SCH ×2 (08:49→20:31)
[2016-11-17] MEDS: FLUDROCORTISONE 0.1 MG TAB PO SCH (08:49)
[2016-11-17] MEDS: SODIUM CHLORIDE 1 GM TAB PO SCH ×3 (08:49→20:31)
[2016-11-17] MEDS: HYDROCORTISONE 2.5% 20 GM CR TOP SCH ×2 (08:50→21:00)
[2016-11-17] MEDS: MIDODRINE 5 MG TAB PO SCH ×2 (08:50→20:35)
--- NOTE | 2016-11-17 12:29 | CONS ---
Date/Time of Note Date/Time of Note DATE: 11/17/16 TIME: 12:29 Consult Date/Type/Reason Admit Date/Time November 06, 2016 at 20:04 Type of Consultation: IM/Pulm Subjective no new complaints Objective pulm-cta abd-soft Vital Signs Date Time Temp Pulse Resp B/P Pulse Ox O2 Delivery O2 Flow Rate FiO2 11/16/16 19:23 98.2 75 19 116/53 96 Intake and Output 11/16/16 11/16/16 11/17/16 15:00 23:00 07:00 Intake Total 620 ml 200 ml Balance 620 ml 200 ml Results/Medications Result Diagram: 11/17/16 0610 11/17/16 0610 Results 24 hrs Laboratory Tests Test 11/17/16 06:10 White Blood Count 5.9 # Red Blood Count 4.03 L Hemoglobin 12.4 Hematocrit 38.6 Mean Corpuscular Volume 95.8 Mean Corpuscular Hemoglobin 30.8 Mean Corpuscular Hemoglobin Concent 32.1 Red Cell Distribution Width 14.6 H Platelet Count 277 # Mean Platelet Volume 11.1 H Neutrophils % 44.3 Lymphocytes % 43.1 Monocytes % 8.7 Eosinophils % 2.7 Basophils % 0.7 Nucleated Red Blood Cells % 0.0 Neutrophils # 2.6 Lymphocytes # 2.5 Monocytes # 0.5 Eosinophils # 0.2 Basophils # 0.0 Nucleated Red Blood Cells # 0.0 Sodium Level 145 H Potassium Level 3.6 Chloride Level 110 Carbon Dioxide Level 27 Anion Gap 12 Blood Urea Nitrogen 11 Creatinine 0.63 Glucose Level 91 Calcium Level 9.2 Phosphorus Level 3.8 Magnesium Level 2.1 Medications Current Medications Docusate Sodium (Colace) 100 mg BID PO Last administered on 11/17/16 08:49; Admin Dose 100 MG; Start 11/06/16 at 22:00 Fludrocortisone Acetate (Florinef) 0.1 mg DAILY PO Last administered on 08:49; Admin Dose 0.1 MG; Start 11/07/16 at 09:00 Levothyroxine Sodium (Synthroid) 100 mcg DAILY@06 PO Last administered on 05:52; Admin Dose 100 MCG; Start 11/07/16 at 06:00 Hydrocortisone (Hydrocortisone 2.5% Cr) 1 applic BID TOP Last administered on 08:50; Admin Dose 1 APPLIC; Start 11/06/16 at 22:00 Midodrine (Proamatine) 10 mg BID PO Last administered on 11/17/16 08:50; Admin Dose 10 MG; Start 11/06/16 at 22:00 Atorvastatin Calcium (Lipitor) 10 mg DAILY@21 PO Last administered on 11/16/16 21:00; Admin Dose 10 MG; Start 11/06/16 at 22:00 Sodium Chloride (Nacl) 1 gm TID PO Last administered on 11/17/16 08:49; Admin Dose 1 GM; Start 11/06/16 at 22:00 Magnesium Hydroxide (Milk Of Mag) 30 ml Q6H PRN PO CONSTIPATION Last administered on 11/08/16 12:05; Admin Dose 30 ML; Start 11/06/16 at 21:45 Zolpidem Tartrate (Ambien) 5 mg HS PRN PO INSOMNIA Last administered on 20:49; Admin Dose 5 MG; Start 11/06/16 at 23:00 Senna (Senokot) 1 tab HS PO Last administered on 11/08/16 20:43; Admin Dose 1 TAB; Start 11/07/16 at 21:00; Status Future Hold Acetaminophen (Tylenol Tab) 650 mg Q4H PRN PO PAIN Last administered on 20:10; Admin Dose 650 MG; Start 11/07/16 at 05:30 Bisacodyl (Dulcolax Supp) 10 mg DAILY PRN [place] CONSTIPATION; Start 11/07/16 at 05 :30 Lactulose (Enulose) 20 gm DAILY PRN PO CONSTIPATION; Start 11/07/16 at 05:30 Diphenhydramine HCl (Benadryl) 25 mg Q6H PRN PO ITCHING Last administered on 21:01; Admin Dose 25 MG; Start 11/10/16 at 21:00 Assessment/Plan Additional Assessment/Plan Rehab- SAH-s/p coil embolization; hydrocephalus; L BG CVA Continue rehab activities, dc planning in progress Head CT- hydrocephalus. Will have patient follow up with neurosurgery. Clinically patient with steady progress HTN anemia COURTNEY RUIZ MD Nov 17, 2016 12:29
--- NOTE | 2016-11-17 13:11 | CONS ---
Date/Time of Note Date/Time of Note DATE: 11/17/16 TIME: 13:09 Consult Date/Type/Reason Admit Date/Time November 06, 2016 at 20:04 Type of Consultation: IM/Pulm Subjective Staff continue to have concerns about patient's behavior. Remains for risk requiring nocturnal bedside sitter. Patient's daughter today expressed concern about her safety when she goes home. Objective Vital Signs Date Time Temp Pulse Resp B/P Pulse Ox O2 Delivery O2 Flow Rate FiO2 11/16/16 19:23 98.2 75 19 116/53 96 Intake and Output 11/16/16 11/16/16 11/17/16 15:00 23:00 07:00 Intake Total 620 ml 200 ml Balance 620 ml 200 ml Exam GENERAL: VITAL SIGNS: per chart NECK: Supple. No JVD or lymphadenopathy. CARDIAC EXAM: S1, S2. No added sounds or murmurs. CHEST: clear bilaterally, No added sounds, rales or wheezes ABDOMEN: Soft, nontender. No guarding or rebound. EXTREMITIES: No cyanosis, clubbing or edema. NEUROLOGIC: Generalized weakness. No focal deficits. Results/Medications Result Diagram: 11/17/16 0610 11/17/16 0610 Results 24 hrs Laboratory Tests Test 11/17/16 06:10 White Blood Count 5.9 # Red Blood Count 4.03 L Hemoglobin 12.4 Hematocrit 38.6 Mean Corpuscular Volume 95.8 Mean Corpuscular Hemoglobin 30.8 Mean Corpuscular Hemoglobin Concent 32.1 Red Cell Distribution Width 14.6 H Platelet Count 277 # Mean Platelet Volume 11.1 H Neutrophils % 44.3 Lymphocytes % 43.1 Monocytes % 8.7 Eosinophils % 2.7 Basophils % 0.7 Nucleated Red Blood Cells % 0.0 Neutrophils # 2.6 Lymphocytes # 2.5 Monocytes # 0.5 Eosinophils # 0.2 Basophils # 0.0 Nucleated Red Blood Cells # 0.0 Sodium Level 145 H Potassium Level 3.6 Chloride Level 110 Carbon Dioxide Level 27 Anion Gap 12 Blood Urea Nitrogen 11 Creatinine 0.63 Glucose Level 91 Calcium Level 9.2 Phosphorus Level 3.8 Magnesium Level 2.1 Medications Current Medications Docusate Sodium (Colace) 100 mg BID PO Last administered on 11/17/16t 08:49; Admin Dose 100 MG; Start 11/06/16 at 22:00 Fludrocortisone Acetate (Florinef) 0.1 mg DAILY PO Last administered on 08:49; Admin Dose 0.1 MG; Start 11/07/16 at 09:00 Levothyroxine Sodium (Synthroid) 100 mcg DAILY@06 PO Last administered on 05:52; Admin Dose 100 MCG; Start 11/07/16 at 06:00 Hydrocortisone (Hydrocortisone 2.5% Cr) 1 applic BID TOP Last administered on 08:50; Admin Dose 1 APPLIC; Start 11/06/16 at 22:00 Midodrine (Proamatine) 10 mg BID PO Last administered on 11/17/16 08:50; Admin Dose 10 MG; Start 11/06/16 at 22:00 Atorvastatin Calcium (Lipitor) 10 mg DAILY@21 PO Last administered on 11/16/16 21:00; Admin Dose 10 MG; Start 11/06/16 at 22:00 Sodium Chloride (Nacl) 1 gm TID PO Last administered on 11/17/16 08:49; Admin Dose 1 GM; Start 11/06/16 at 22:00 Magnesium Hydroxide (Milk Of Mag) 30 ml Q6H PRN PO CONSTIPATION Last administered on 11/08/16 12:05; Admin Dose 30 ML; Start 11/06/16 at 21:45 Zolpidem Tartrate (Ambien) 5 mg HS PRN PO INSOMNIA Last administered on 20:49; Admin Dose 5 MG; Start 11/06/16 at 23:00 Senna (Senokot) 1 tab HS PO Last administered on 11/08/16 20:43; Admin Dose 1 TAB; Start 11/07/16 at 21:00; Status Future Hold Acetaminophen (Tylenol Tab) 650 mg Q4H PRN PO PAIN Last administered on 20:10; Admin Dose 650 MG; Start 11/07/16 at 05:30 Bisacodyl (Dulcolax Supp) 10 mg DAILY PRN [place] CONSTIPATION; Start 11/07/16 at 05 :30 Lactulose (Enulose) 20 gm DAILY PRN PO CONSTIPATION; Start 11/07/16 at 05:30 Diphenhydramine HCl (Benadryl) 25 mg Q6H PRN PO ITCHING Last administered on 6/ 5/17at 21:01; Admin Dose 25 MG; Start 11/10/16 at 21:00 Assessment/Plan Chief Complaint/Hosp Course IMPRESSION: 1. Status post subarachnoid hemorrhage due to cerebral artery aneurysm, status post coiling complicated by vasospasm and hydrocephalus requiring external ventricular drain. 2. Status post 3. History of hypertension. 4. History of hypothyroidism. 5. History of anemia. 6. Hyperlipidemia. 7. Hypertensive heart disease 8. Behavioral problems post intracranial bleed. RECOMMENDATIONS: 1. PT/OT 2. Close management of blood pressure 3. DC antibiotics. 4. Benadryl as needed for rash 5. Fall precautions 6. Patient will likely need significant home services. Problems: ALEC HENRY MD, [facility] Nov 17, 2016 13:11
[2016-11-17 20:00] VITALS: BP 110/58; RESP 19
[2016-11-17] MEDS: ATORVASTATIN 10 MG TAB PO SCH (20:30)
[2016-11-17] MEDS: DIPHENHYDRAMINE 25 MG CAP PO PRN (20:30)
[2016-11-18] MEDS: LEVOTHYROXINE 100 MCG TAB PO SCH (06:22)
[2016-11-18] MEDS: MIDODRINE 5 MG TAB PO SCH ×2 (08:50→20:38)
[2016-11-18] MEDS: DOCUSATE SODIUM 100 MG CAP PO SCH ×2 (08:51→20:37)
[2016-11-18] MEDS: FLUDROCORTISONE 0.1 MG TAB PO SCH (08:51)
[2016-11-18] MEDS: SODIUM CHLORIDE 1 GM TAB PO SCH ×3 (08:51→20:37)
[2016-11-18] MEDS: HYDROCORTISONE 2.5% 20 GM CR TOP SCH ×2 (08:51→20:40)
[2016-11-18 09:00] VITALS: BP 115/56; PULSE 73; RESP 18
--- NOTE | 2016-11-18 11:25 | CONS ---
Date/Time of Note Date/Time of Note DATE: 11/18/16 TIME: 11:25 Consult Date/Type/Reason Admit Date/Time November 06, 2016 at 20:04 Type of Consultation: IM/Pulm Subjective no new complaints Objective pulm-cta sba ambulation Vital Signs Date Time Temp Pulse Resp B/P Pulse Ox O2 Delivery O2 Flow Rate FiO2 11/18/16 09:00 98.0 73 18 115/56 97 Room Air Intake and Output 11/17/16 11/17/16 11/18/16 14:59 22:59 06:59 Intake Total 240 ml Balance 240 ml Results/Medications Result Diagram: 11/17/16 0610 11/17/16 0610 Medications Current Medications Docusate Sodium (Colace) 100 mg BID PO Last administered on 11/18/16 08:51; Admin Dose 100 MG; Start 11/06/16 at 22:00 Fludrocortisone Acetate (Florinef) 0.1 mg DAILY PO Last administered on 08:51; Admin Dose 0.1 MG; Start 11/07/16 at 09:00 Levothyroxine Sodium (Synthroid) 100 mcg DAILY@06 PO Last administered on 06:22; Admin Dose 100 MCG; Start 11/07/16 at 06:00 Hydrocortisone (Hydrocortisone 2.5% Cr) 1 applic BID TOP Last administered on 08:51; Admin Dose 1 APPLIC; Start 11/06/16 at 22:00 Midodrine (Proamatine) 10 mg BID PO Last administered on 11/18/16 08:50; Admin Dose 10 MG; Start 11/06/16 at 22:00 Atorvastatin Calcium (Lipitor) 10 mg DAILY@21 PO Last administered on 11/17/16 20:30; Admin Dose 10 MG; Start 11/06/16 at 22:00 Sodium Chloride (Nacl) 1 gm TID PO Last administered on 11/18/16 08:51; Admin Dose 1 GM; Start 11/06/16 at 22:00 Magnesium Hydroxide (Milk Of Mag) 30 ml Q6H PRN PO CONSTIPATION Last administered on 11/08/16 12:05; Admin Dose 30 ML; Start 11/06/16 at 21:45 Zolpidem Tartrate (Ambien) 5 mg HS PRN PO INSOMNIA Last administered on 20:49; Admin Dose 5 MG; Start 11/06/16 at 23:00 Senna (Senokot) 1 tab HS PO Last administered on 11/08/16 20:43; Admin Dose 1 TAB; Start 11/07/16 at 21:00; Status Future Hold Acetaminophen (Tylenol Tab) 650 mg Q4H PRN PO PAIN Last administered on 20:10; Admin Dose 650 MG; Start 11/07/16 at 05:30 Bisacodyl (Dulcolax Supp) 10 mg DAILY PRN [place] CONSTIPATION; Start 11/07/16 at 05 :30 Lactulose (Enulose) 20 gm DAILY PRN PO CONSTIPATION; Start 11/07/16 at 05:30 Diphenhydramine HCl (Benadryl) 25 mg Q6H PRN PO ITCHING Last administered on 20:30; Admin Dose 25 MG; Start 11/10/16 at 21:00 Assessment/Plan Additional Assessment/Plan Rehab- [facility]-s/p coil embolization; hydrocephalus; L BG CVA Continue rehab activities, dc planning in progress HTN anemia COURTNEY RUIZ MD Nov 18, 2016 11:25
--- NOTE | 2016-11-18 11:47 | CONS ---
Date/Time of Note Date/Time of Note DATE: 11/18/16 TIME: 11:46 Consult Date/Type/Reason Admit Date/Time November 06, 2016 at 20:04 Type of Consultation: IM/Pulm Subjective Patient stable this morning no new events Objective Vital Signs Date Time Temp Pulse Resp B/P Pulse Ox O2 Delivery O2 Flow Rate FiO2 11/18/16 09:00 98.0 73 18 115/56 97 Room Air Intake and Output 11/17/16 11/17/16 11/18/16 14:59 22:59 06:59 Intake Total 240 ml Balance 240 ml Exam GENERAL: Well-nourished well-developed lady comfortable VITAL SIGNS: per chart NECK: Supple. No JVD or lymphadenopathy. CARDIAC EXAM: S1, S2. No added sounds or murmurs. CHEST: clear bilaterally, No added sounds, rales or wheezes ABDOMEN: Soft, nontender. No guarding or rebound. EXTREMITIES: No cyanosis, clubbing or edema. NEUROLOGIC: Generalized weakness. No focal deficits. Results/Medications Result Diagram: 11/17/16 0610 11/17/16 0610 Medications Current Medications Docusate Sodium (Colace) 100 mg BID PO Last administered on 11/18/16 08:51; Admin Dose 100 MG; Start 11/06/16 at 22:00 Fludrocortisone Acetate (Florinef) 0.1 mg DAILY PO Last administered on 08:51; Admin Dose 0.1 MG; Start 11/07/16 at 09:00 Levothyroxine Sodium (Synthroid) 100 mcg DAILY@06 PO Last administered on 06:22; Admin Dose 100 MCG; Start 11/07/16 at 06:00 Hydrocortisone (Hydrocortisone 2.5% Cr) 1 applic BID TOP Last administered on 08:51; Admin Dose 1 APPLIC; Start 11/06/16 at 22:00 Midodrine (Proamatine) 10 mg BID PO Last administered on 11/18/16 08:50; Admin Dose 10 MG; Start 11/06/16 at 22:00 Atorvastatin Calcium (Lipitor) 10 mg DAILY@21 PO Last administered on 11/17/16 20:30; Admin Dose 10 MG; Start 11/06/16 at 22:00 Sodium Chloride (Nacl) 1 gm TID PO Last administered on 11/18/16 08:51; Admin Dose 1 GM; Start 11/06/16 at 22:00 Magnesium Hydroxide (Milk Of Mag) 30 ml Q6H PRN PO CONSTIPATION Last administered on 11/08/16 12:05; Admin Dose 30 ML; Start 11/06/16 at 21:45 Zolpidem Tartrate (Ambien) 5 mg HS PRN PO INSOMNIA Last administered on 20:49; Admin Dose 5 MG; Start 11/06/16 at 23:00 Senna (Senokot) 1 tab HS PO Last administered on 11/08/16 20:43; Admin Dose 1 TAB; Start 11/07/16 at 21:00; Status Future Hold Acetaminophen (Tylenol Tab) 650 mg Q4H PRN PO PAIN Last administered on 20:10; Admin Dose 650 MG; Start 11/07/16 at 05:30 Bisacodyl (Dulcolax Supp) 10 mg DAILY PRN [place] CONSTIPATION; Start 11/07/16 at 05 :30 Lactulose (Enulose) 20 gm DAILY PRN PO CONSTIPATION; Start 11/07/16 at 05:30 Diphenhydramine HCl (Benadryl) 25 mg Q6H PRN PO ITCHING Last administered on 20:30; Admin Dose 25 MG; Start 11/10/16 at 21:00 Assessment/Plan Chief Complaint/Hosp Course IMPRESSION: 1. Status post subarachnoid hemorrhage due to cerebral artery aneurysm, status post coiling complicated by vasospasm and hydrocephalus requiring external ventricular drain. 2. Status post 3. History of hypertension. 4. History of hypothyroidism. 5. History of anemia. 6. Hyperlipidemia. 7. Hypertensive heart disease 8. Neurological deficits resulting in behavioral problems post intracranial bleed. RECOMMENDATIONS: 1. PT/OT 2. Close management of blood pressure 3. DC antibiotics. 4. Benadryl as needed for rash 5. Fall precautions Discharge planning Problems: [facility]LEC HENRY MD, [facility] Nov 18, 2016 11:47
[2016-11-18 20:00] VITALS: BP 121/56; RESP 18
[2016-11-18] MEDS: ATORVASTATIN 10 MG TAB PO SCH (20:37)
[2016-11-18] MEDS: ACETAMINOPHEN 325 MG TAB PO PRN (21:07)
[2016-11-18] MEDS: DIPHENHYDRAMINE 25 MG CAP PO PRN (21:07)
[2016-11-19] MEDS: LEVOTHYROXINE 100 MCG TAB PO SCH (06:00)
[2016-11-19 07:30] VITALS: BP 117/59; RESP 18
[2016-11-19] MEDS: DOCUSATE SODIUM 100 MG CAP PO SCH (09:00)
[2016-11-19] MEDS: SODIUM CHLORIDE 1 GM TAB PO SCH (09:00)
[2016-11-19] MEDS: MIDODRINE 5 MG TAB PO SCH (09:46)
[2016-11-19] MEDS: HYDROCORTISONE 2.5% 20 GM CR TOP SCH (09:46)
[2016-11-19] MEDS: FLUDROCORTISONE 0.1 MG TAB PO SCH (09:46)
--- NOTE | 2016-11-19 11:32 | CONS ---
Date/Time of Note Date/Time of Note DATE: 11/19/16 TIME: 11:31 Consult Date/Type/Reason Admit Date/Time November 06, 2016 at 20:04 Type of Consultation: IM/Pulm Subjective Patient comfortable no new events Objective Vital Signs Date Time Temp Pulse Resp B/P Pulse Ox O2 Delivery O2 Flow Rate FiO2 11/19/16 07:30 98.6 68 18 117/59 96 11/18/16 09:00 Room Air Intake and Output 11/18/16 11/18/16 11/19/16 15:00 23:00 07:00 Intake Total 720 ml 840 ml 150 ml Balance 720 ml 840 ml 150 ml Exam GENERAL: Elderly appearing lady comfortable no acute distress VITAL SIGNS: per chart NECK: Supple. No JVD or lymphadenopathy. CARDIAC EXAM: S1, S2. No added sounds or murmurs. CHEST: clear bilaterally, No added sounds, rales or wheezes ABDOMEN: Soft, nontender. No guarding or rebound. EXTREMITIES: No cyanosis, clubbing or edema. NEUROLOGIC: Generalized weakness. No focal deficits. Results/Medications Result Diagram: 11/17/16 0610 11/17/16 0610 Medications Current Medications Docusate Sodium (Colace) 100 mg BID PO Last administered on 11/18/16 20:37; Admin Dose 100 MG; Start 11/06/16 at 22:00 Fludrocortisone Acetate (Florinef) 0.1 mg DAILY PO Last administered on 09:46; Admin Dose 0.1 MG; Start 11/07/16 at 09:00 Levothyroxine Sodium (Synthroid) 100 mcg DAILY@06 PO Last administered on 06:22; Admin Dose 100 MCG; Start 11/07/16 at 06:00 Hydrocortisone (Hydrocortisone 2.5% Cr) 1 applic BID TOP Last administered on 09:46; Admin Dose 1 APPLIC; Start 11/06/16 at 22:00 Midodrine (Proamatine) 10 mg BID PO Last administered on 11/19/16 09:46; Admin Dose 10 MG; Start 11/06/16 at 22:00 Atorvastatin Calcium (Lipitor) 10 mg DAILY@21 PO Last administered on 11/18/16 20:37; Admin Dose 10 MG; Start 11/06/16 at 22:00 Sodium Chloride (Nacl) 1 gm TID PO Last administered on 11/18/16 20:37; Admin Dose 1 GM; Start 11/06/16 at 22:00 Magnesium Hydroxide (Milk Of Mag) 30 ml Q6H PRN PO CONSTIPATION Last administered on 11/08/16 12:05; Admin Dose 30 ML; Start 11/06/16 at 21:45 Zolpidem Tartrate (Ambien) 5 mg HS PRN PO INSOMNIA Last administered on 20:49; Admin Dose 5 MG; Start 11/06/16 at 23:00 Senna (Senokot) 1 tab HS PO Last administered on 11/08/16 20:43; Admin Dose 1 TAB; Start 11/07/16 at 21:00; Status Future Hold Acetaminophen (Tylenol Tab) 650 mg Q4H PRN PO PAIN Last administered on 20:10; Admin Dose 650 MG; Start 11/07/16 at 05:30 Bisacodyl (Dulcolax Supp) 10 mg DAILY PRN [place] CONSTIPATION; Start 11/07/16 at 05 :30 Lactulose (Enulose) 20 gm DAILY PRN PO CONSTIPATION; Start 11/07/16 at 05:30 Diphenhydramine HCl (Benadryl) 25 mg Q6H PRN PO ITCHING Last administered on 21:07; Admin Dose 25 MG; Start 11/10/16 at 21:00 Assessment/Plan Chief Complaint/Hosp Course IMPRESSION: 1. Status post subarachnoid hemorrhage due to cerebral artery aneurysm, status post coiling complicated by vasospasm and hydrocephalus requiring external ventricular drain. 2. Status post 3. History of hypertension. 4. History of hypothyroidism. 5. History of anemia. 6. Hyperlipidemia. 7. Hypertensive heart disease 8. Neurological deficits resulting in behavioral problems post intracranial bleed. RECOMMENDATIONS: 1. PT/OT 2. Close management of blood pressure 3. DC antibiotics. Discharge planning Problems: [facility] HENRY MD, [facility] Nov 19, 2016 11:32
--- NOTE | 2016-11-20 15:41 | DS ---
DATE OF ADMISSION: 11/06/2016 DATE OF DISCHARGE: 11/19/2016 REHABILITATION DISCHARGE SUMMARY ADMISSION DIAGNOSES: 1. Subarachnoid hemorrhage status post coil embolization, along with hydrocephalus and left basal g [place] cerebrovascular accident. 2. Hypertension. 3. Anemia. 4. Impairments in self-care, mobility and cognition. DISCHARGE DIAGNOSES: 1. Subarachnoid hemorrhage status post coil embolization, along with hydrocephalus and left basal g [place] cerebrovascular accident. 2. Hypertension. 3. Anemia. 4. Improvements in self-care, mobility and cognition. HOSPITAL COURSE: The patient was admitted for comprehensive interdisciplinary acute rehab and made excellent functional gains during the course of the stay. The patient progressed from an initial mo derate assist for self-care and mobility tasks, and progressed to the point of standby assist for al l areas of self-care and mobility, including ambulating over 150 feet with the use of a front-wheel walker. The patient is being discharged home with family, with the recommendation of home health ph ysical therapy, occupational therapy and speech therapy followup, in addition to 24-hour supervision . The family was able to demonstrate safe carryover of technique. The patient is being discharged home with the recommendation of home health physical therapy, occupational therapy and speech therap y followup. DISCHARGE MEDICATIONS: Per the medication reconciliation sheet. CONDITION ON DISCHARGE: Stable. Dictated By: COURTNEY CESAR/YESSICA Conf#: [id number] DID#: [id number]
== END 2016-11-19 13:15 | disposition home health service (06) | DRG 57 ==
LOC: VRC 20:04
PROVIDERS: ADMIT Physical Medicine & Rehabilitation; ATTEND Internal Medicine Pulmonary Disease
PROC: F08Z0ZZ Bathing/Showering Techniques Treatment (ICD-10-PCS; principal; 2016-11-06)
PROC: F07Z5ZZ Bed Mobility Treatment (ICD-10-PCS; 2016-11-06)
DX: I69.00 Unspecified sequelae of nontraumatic subarachnoid hemorrhage (principal); G91.9 Hydrocephalus, unspecified; I11.9 Hypertensive heart disease without heart failure; I10 Essential (primary) hypertension; N39.0 Urinary tract infection, site not specified; D64.9 Anemia, unspecified; E03.9 Hypothyroidism, unspecified; E78.5 Hyperlipidemia, unspecified; F39 Unspecified mood [affective] disorder; Z91.19 Patient's noncompliance with other medical treatment and regimen
CPT/HCPCS: 70450; 74000; 80048; 80053; 81001; 82150; 83735; 84100; 85025; 87081; 87086; 92507; 92523; 92526; 92610; 97110; 97112; 97116; 97150; 97163; 97530; 97535